=== PATIENT | male | born 1975 ===

== ENCOUNTER 2020-10-01 14:01 | Inpatient (IN) | payer MEDICARE ==
--- NOTE | 2020-10-02 09:07 | History and Physical Report ---
GP History & Physical - History of Present Illness Date of admission: 10/01/20 Date of Examination: 10/02/20 History of Present Illness: HPI Patient is a 45-year-old -[place] male with past psychiatric history of schizophrenia who was admitted from an outside hospital after initial presentation to the ED by EMS with concerns of aggressive and angry behavior at home by the sister. This a.m. patient currently had mumbling, when asked how he feels patient reported refused all HIV. When asked if patient is single, patient reported and waiting to see all of my kids, says he has holes, he got no ice and no children. Patient then began thinking about the care and symptoms and states that he would like to get some zees. 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 When asked if patient does drugs, patient states he does clubs and my question are also the answer. Patient reported that he has a vision of a female psychiatrist asking his questions and he walked out of the interview PAST PSYCHIATRIC HISTORY: Diagnoses: Schizophrenia Suicide attempts or Self-harm behavior: n/a Prior psychiatric hospitalizations: n/a Substance Abuse history: n/a Previous psychiatric medications tried:n/a Outpatient treatment: n/a PAST MEDICAL HISTORY: n/a Family Psychiatric History: None reported or documented SOCIAL HISTORY Marital Status: single Living Arrangements: with family Employment Status: n/a Access to guns/weapons: n/a Education: n/a History of Abuse: n/a Legal History:n/a REVIEW OF SYSTEMS ROS cannot be reliably obtained from the patient due to is confusion MENTAL STATUS EXAMINATION General Appearance and Behavior: Age appropriate, good hygiene, not wearing appropriate clothes, good eye contact, cooperative polite with questioning. Cooperation: Participating/engaged Psychomotor Behavior: Psychomotor agitation Mood: Good Affect and affective range: euthymic, euphoric Thought Process:Circumstantial, Illogical, Thought Content: hallucinations. Flight of ideas, Illogical, Grandiose, Speech: pressured, loud volume at times Intellectual Functioning: Average Suicidal Ideation: Denies SI Homicidal Ideation: Denies HIl Impulse Control: Impaired Insight and Judgment: Limited insight and judgment Memory: Normal, Attention: Divided attention impaired Orientation: Alert, Diagnoses: Assessment and Plan - Psychiatric problem (1) Acute schizophrenia Current Visit: Yes Status: Acute F23 Treatment Plan Patient to be started on IM due to acute psychosis. [place] IM, bridged to oral haldol Depakote 250 TID Patient admitted for inpatient psychiatric evaluation, medication adjustment and close monitoring The patient's behavior, mood, sleep and appetite will be closely monitored. Patient enrolled in individual and group therapeutic sessions and encouraged to attend. Patient provided with a safe and structured environment. Patient's physical health needs will be addressed by the Hospitalist. Hospitalist Consulted Labs including CBC, CMP, Lipid profile and Hemoglobin A1C levels ordered for baseline reference Social Assessment will be completed and the Low Pressure Boiler Operator will work with patient and family to ensure a suitable and safe disposition Medication adjustment will be made as clinically indicated Usual Wellness Baptism/Preservation: - Start Trazodone 50 mg po QHS & 50 mg po QHS PRN between 10 PM & 2 AM for insomnia - Start Melatonin 5 mg po QHS to promote circadian rhythm - Start [place]-3 for brain health, reduce impulsivity, and as adjunctive treatment for mood disorder, continue upon discharge given overall benefits. - Start B1 prophylaxis with 200 mg po for 5 days The patient agreed on the treatment plan, understood the risk, benefit, alternative treatment, potential consequence of no treatment, and gave informed consent. Initial Certification Inpatient psych services: I certify that the inpatient psychiatric services are required for treatment that could reasonably be expected to improve the patient's condition. Estimated days: 7 Post hospital care: primary care provider, psychiatric provider Legal Status: Voluntary Patient Problems: Current Active Problems Acute schizophrenia (Acute) Reaction to Hospitalization: Accepting Medications and Allergies Allergies Allergy/AdvReac Type Severity Reaction Status Date / Time No Known Allergies Allergy Unverified 10/01/20 16:10 Home Medications Medication Instructions Recorded Confirmed Last Taken Type VALPROIC ACID Liq [DepaKENE Liq] 250 mg PO BID 10/02/20 10/02/20 Unknown History risperiDONE [RisperDAL] 4 mg PO QHS 10/02/20 10/02/20 Unknown History Results - Results Labs/Vitals: Laboratory Last Values POC Glucose 93 mg/dL (70-105) 10/01/20 20:51 Last Vital Signs Temp 98.2 F 10/01/20 22:00 Pulse 67 10/01/20 22:00 Resp 17 10/01/20 22:00 BP 99/64 10/02/20 07:57 Pulse Ox 96 10/01/20 22:00 Physical Examination - Constitutional Vitals: Vital Signs Temp Pulse Resp BP Pulse Ox 98.2 F 67 17 99/64 96 10/01/20 22:00 10/01/20 22:00 10/01/20 22:00 10/02/20 07:57 10/01/20 22:00 Temperature -Last 24 Hours Temperature 98.2 F Mental Status Exam - Vital signs Last Vital Signs Temp 98.2 F 10/01/20 22:00 Pulse 67 10/01/20 22:00 Resp 17 10/01/20 22:00 BP 99/64 10/02/20 07:57 Pulse Ox 96 10/01/20 22:00 Assessment and Plan - Psychiatric problem (1) Acute schizophrenia Current Visit: Yes Status: Acute Physician Certification - Certification Statement Physician Certification Statement: This is an acknowledgement statement that APOLONIA MASON HONEYCUTT JR. is a 45 year old M who requires inpatient psychiatric admission for treatment which could reasonably be expected to improve the patient's condition for Estimated period of time patient will need to remain in the hospital: [ ] Plan for post-hospital care: [ ]
[2020-10-02] MEDS ORDERED: WATER FOR INJ Sterile (PF) 10 ML ONE (09:26)
[2020-10-02] MEDS: ZIPRASIDONE MESYLATE 20 MG VIAL IM SCH ×2 (09:52→21:30)
[2020-10-02] MEDS: HALOPERIDOL 2 MG TAB PO SCH ×2 (09:54→21:30)
[2020-10-02] MEDS: OMEGA-3 FATTY ACIDS/FISH OIL 1 GRAM CAP PO SCH ×2 (09:54→21:29)
[2020-10-02] MEDS ORDERED: BENZTROPINE 2 MG/2 ML INJ IM ONE (10:00)
[2020-10-02] MEDS: VALPROIC ACID 250 MG CAP PO SCH ×2 (15:19→20:57)
--- NOTE | 2020-10-02 20:31 | Consultation ---
History of Present Illness - Reason for Consult Consult date: 10/02/20 Medical management Requesting physician: JERRY MONTGOMERY - History of Present Illness 45 YO Male with Schizophrenia admitted to geriatric psychiatry for psychiatric stabilization. Consult placed for medical management. Patient seen and evaluated in recreation room. Patient is cooperative with exam and interview. Patient denies fever, chills, chest pain, palpitations, shortness of breath, dif ficulty breathing, productive cough, recent ill contacts, or known exposure to COVID 19. No reported nursing events. Past History Past Medical History: other (see hpi) Past Surgical History: No surgical history, Other (reviewed) Social history: single Family history: no significant family history, other (reviewed) Medications and Allergies Allergies Allergy/AdvReac Type Severity Reaction Status Date / Time No Known Allergies Allergy Unverified 10/01/20 16:10 Home Medications Medication Instructions Recorded Confirmed Last Taken Type VALPROIC ACID Liq [DepaKENE Liq] 250 mg PO BID 10/02/20 10/02/20 Unknown History risperiDONE [RisperDAL] 4 mg PO QHS 10/02/20 10/02/20 Unknown History Active Meds: Active Medications Fish Oil ([place]-3 Fatty Acids/Fish Oil 1 Gram Cap) 2,000 mg PO BID [facility] Last Admin: 10/02/20 09:54 Dose: 2,000 mg Documented by: Haloperidol (Haloperidol 2 Mg Tab) 2 mg PO BID [facility] Last Admin: 10/02/20 09:54 Dose: 2 mg Documented by: Melatonin (Melatonin 5 Mg Tab) 5 mg PO QHS PRN PRN Reason: Sleep Trazodone HCl (Trazodone 50 Mg Tab) 50 mg PO QHS [facility] Valproic Acid (Valproic Acid 250 Mg Cap) 250 mg PO TID [facility] Last Admin: 10/02/20 15:19 Dose: 250 mg Documented by: Ziprasidone (Ziprasidone Mesylate 20 Mg Vial) 10 mg IM BID [facility] Stop: 10/03/20 10:01 Last Admin: 10/02/20 09:52 Dose: 10 mg Documented by: Review of Systems Constitutional: no weight loss, no weight gain, no fever, no chills Ears, nose, mouth and throat: no ear pain, no ear discharge, no tinnitis, no nose pain, no nasal congestion, no nasal discharge Cardiovascular: no chest pain, no orthopnea, no palpitations, no rapid/irregular heart beat, no edema, no lightheadedness Respiratory: no cough, no cough with sputum, no hemoptysis, no dyspnea on exertion Gastrointestinal: no abdominal pain, no nausea, no vomiting, no hematemesis, no coffee ground emesis Genitourinary Male: no hematuria, no flank pain, no discharge, no urinary hesitancy, no nocturia Rectal: no pain, no incontinence, no bleeding Musculoskeletal: no neck stiffness, no neck pain, no shooting arm pain, no arm numbness/tingling, no low back pain, no shooting leg pain, no leg numbness/tingling Integumentary: no rash, no sores, no wounds, no jaundice, no boils Neurological: no transient paralysis, no paralysis, no parathesias, no numbness, no tingling, no seizures, no syncope, no ataxia Psychiatric: no anxiety, no memory loss, no change in sleep habits, no sleep disturbances, no hypersomnia, no change in libido, no suicidal ideation, no disorientation Endocrine: no heat intolerance, no polyphagia, no polydipsia, no polyuria, no nocturia, no excessive sweating Hematologic/Lymphatic: no easy bruising, no easy bleeding, no lymphedema Allergic/Immunologic: no urticaria, no allergic rhinitis Exam - Constitutional Vitals: Temp Pulse Resp BP Pulse Ox 97.6 F 64 18 99/64 98 10/02/20 10:00 10/02/20 10:00 10/02/20 10:00 10/02/20 10:00 10/02/20 10:00 General appearance: Present: no acute distress, well-nourished - EENT Eyes: Present: PERRL ENT: hearing intact, clear oral mucosa - Neck Neck: Present: supple, normal ROM - Respiratory Respiratory effort: normal Respiratory: bilateral: CTA - Cardiovascular Heart Sounds: Present: S1 & S2. Absent: rub, click - Extremities Extremities: pulses symmetrical, No edema Peripheral Pulses: within normal limits - Abdominal General gastrointestinal: Present: soft, non-tender, non-distended, normal bowel sounds Male genitourinary: Present: normal - Integumentary Integumentary: Present: clear, warm, dry - Musculoskeletal Musculoskeletal: gait normal, strength equal bilaterally - Psychiatric Psychiatric: cooperative - Neurologic Neurologic: CNII-XII intact, moves all extremities Results - Labs CBC & Chem 7: 10/03/20 09:42 10/03/20 09:42 Assessment and Plan - Patient Problems (1) Acute schizophrenia Current Visit: Yes Status: Acute Plan to address problem: continue medical management
[2020-10-02] MEDS: traZODone 50 MG TAB PO SCH (21:29)
[2020-10-03] MEDS: HALOPERIDOL 2 MG TAB PO SCH (09:22)
[2020-10-03] MEDS: VALPROIC ACID 250 MG CAP PO SCH ×3 (09:22→21:17)
[2020-10-03] MEDS: ZIPRASIDONE MESYLATE 20 MG VIAL IM SCH (09:22)
[2020-10-03] MEDS: OMEGA-3 FATTY ACIDS/FISH OIL 1 GRAM CAP PO SCH (09:23)
[2020-10-03] MEDS ORDERED: LORazepam 2 MG/ML VIAL IM PRN (09:41)
--- NOTE | 2020-10-03 09:46 | Progress Note ---
Subjective Date of service: 10/03/20 Principal diagnosis: (1) Acute schizophrenia Subjective Comment: \Per Psych Nurse: Pt reported to have refused blood drawn this a.m. Patient is awake and resting quietly in her room. He denies needs at present, eat 100% breakfast. Pt. refused lab this AM, education given on benefit of lab drawn, pt strongly refused. Will continue to monitor patient. Psych Progress HPI In my interview with the patient this morning, the patient is not cooperative, walking away from me, says I am a white man and I am too young to talk to him. Patient began barking and yelling out loud. Security called and patient given medication to help sedate him for safety. Reason for continuing inpatient treatment:Acute psychosis Review of Symptoms: Constitutional: Negative for weight loss ENT: Negative for stridor Respiratory: Negative for cough or hemoptysis All other systems reviewed and are negative MENTAL STATUS EXAMINATION General Appearance and Behavior: Age appropriate, good hygiene, not wearing appropriate clothes, good eye contact, cooperative polite with questioning. Cooperation: Participating/engaged Psychomotor Behavior: Psychomotor agitation Mood: Good Affect and affective range: euthymic, euphoric Thought Process:Circumstantial, Illogical, Thought Content: hallucinations. Flight of ideas, Illogical, Grandiose, Speech: pressured, loud volume at times Intellectual Functioning: Average Suicidal Ideation: Denies SI Homicidal Ideation: Denies HIl Impulse Control: Impaired Insight and Judgment: Limited insight and judgment Memory: Normal, Attention: Divided attention impaired Orientation: Alert, oriented Assessment and Plan - Psychiatric problem (1) Acute schizophrenia Current Visit: Yes Status: Acute F23 Treatment Plan Patient to be started on IM due to acute psychosis. [place] IM discontinued, not responding to treatment, will start scheduled IMhaldol. Depakote 500 mg BID Seroquel 100mg BID Patient admitted for inpatient psychiatric evaluation, medication adjustment and close monitoring The patient's behavior, mood, sleep and appetite will be closely monitored. Patient enrolled in individual and group therapeutic sessions and encouraged to attend. Patient provided with a safe and structured environment. Patient's physical health needs will be addressed by the Hospitalist. Hospitalist Consulted Labs including CBC, CMP, Lipid profile and Hemoglobin A1C levels ordered for baseline reference Social Assessment will be completed and the Conciliation Court Judge will work with patient and family to ensure a suitable and safe disposition Medication adjustment will be made as clinically indicated Usual Wellness Voodoo/Preservation: - Start Trazodone 50 mg po QHS & 50 mg po QHS PRN between 10 PM & 2 AM for insomnia - Start Melatonin 5 mg po QHS to promote circadian rhythm - Start [place]-3 for brain health, reduce impulsivity, and as adjunctive treatment for mood disorder, continue upon discharge given overall benefits. - Start B1 prophylaxis with 200 mg po for 5 days The patient agreed on the treatment plan, understood the risk, benefit, alternative treatment, potential consequence of no treatment, and gave informed consent. Initial Certification Inpatient psych services: I certify that the inpatient psychiatric services are required for treatment that could reasonably be expected to improve the patient's condition. Estimated days: 5 Post hospital care: primary care provider, psychiatric provider Assessment and Plan - Patient Problems (1) Acute schizophrenia Current Visit: Yes Status: Acute Medications and Allergies Allergies Allergy/AdvReac Type Severity Reaction Status Date / Time No Known Allergies Allergy Unverified 10/01/20 16:10 Home Medications Medication Instructions Recorded Confirmed Last Taken Type VALPROIC ACID Liq [DepaKENE Liq] 250 mg PO BID 10/02/20 10/02/20 Unknown History risperiDONE [RisperDAL] 4 mg PO QHS 10/02/20 10/02/20 Unknown History Active Meds: Active Medications Fish Oil ([place]-3 Fatty Acids/Fish Oil 1 Gram Cap) 2,000 mg PO BID [facility] Last Admin: 10/03/20 09:23 Dose: 2,000 mg Documented by: Haloperidol Lactate (Haloperidol Lactate 5 Mg/1 Ml Inj) 5 mg IM BID [facility] Stop: 10/04/20 10:01 Lorazepam (Lorazepam 2 Mg/Ml Vial) 2 mg IM Q4H PRN PRN Reason: Agitation Melatonin (Melatonin 5 Mg Tab) 5 mg PO QHS PRN PRN Reason: Sleep Risperidone (Risperidone 0.25 Mg Tab) 1 mg PO BID [facility] Trazodone HCl (Trazodone 50 Mg Tab) 50 mg PO QHS [facility] Last Admin: 10/02/20 21:29 Dose: 50 mg Documented by: Valproic Acid (Valproic Acid 250 Mg Cap) 500 mg PO BID [facility] Ziprasidone (Ziprasidone Mesylate 20 Mg Vial) 10 mg IM BID [facility] Stop: 10/03/20 10:01 Last Admin: 10/03/20 09:22 Dose: 10 mg Documented by: Results - Results Labs/Vitals: Laboratory Last Values POC Glucose 93 mg/dL (70-105) 10/01/20 20:51 Last Vital Signs Temp 97.5 F L 10/02/20 22:00 Pulse 63 10/02/20 22:00 Resp 16 10/02/20 22:00 BP 114/64 10/02/20 22:00 Pulse Ox 96 10/02/20 22:00
[2020-10-03] MEDS ORDERED: QUEtiapine 100 MG TAB PO SCH (10:00)
[2020-10-03] MEDS ORDERED: risperiDONE 1 MG TAB PO SCH (10:00)
[2020-10-03 10:08] LABS: Hematocrit 39.5 % (35.5-45.6); Hemoglobin 13.2 gm/dl (11.8-15.2); Mean Corpuscular HGB Conc 33 % (32-34); Mean Corpuscular Volume 92 fl (84-94); Platelet Count 166 K/mm3 (140-440); Red Cell Distribution Width 12.5 % (13.2-15.2)
[2020-10-03] MEDS: HALOPERIDOL LACTATE 5 MG/1 ML INJ IM SCH ×2 (10:12→21:17)
[2020-10-03 10:26] LABS: Alanine Aminotransferase 19 units/L (7-56); Albumin 4.3 g/dL (3.9-5); BUN/Creatinine Ratio 11; Blood Urea Nitrogen 11 mg/dL (9-20); Calcium 9.2 mg/dL (8.4-10.2); Chol/HDL Ratio 2.59 %; HDL Cholesterol 49 mg/dL (40-59); Hemolysis Index 9; LDL Cholesterol,Direct 71 mg/dL (50-130)
[2020-10-03 12:26] LABS: Total Cells Counted 100
[2020-10-03 12:27] LABS: Platelet Estimate Consistent w Auto; RBC Morphology Normal
[2020-10-03] MEDS: QUEtiapine 100 MG TAB PO SCH (21:17)
[2020-10-03] MEDS: traZODone 50 MG TAB PO SCH (21:17)
[2020-10-03] MEDS ORDERED: VALPROIC ACID 250 MG/5 ML ORAL LIQD PO SCH (22:00)
--- NOTE | 2020-10-04 07:52 | Progress Note ---
Subjective Date of service: 10/04/20 Principal diagnosis: (1) Acute schizophrenia Subjective Comment: Per Psych Nurse: Patient went to sleep this morning after receiving prn IM medication. He refused po meds that were added this morning stating we were trying to kill him by giving him too much medication. When he awoke he was calmer but is starting to pace the floors again. His appetite is fair. Will continue to monitor patient for safety. Psych Progress HPI Patient is in room today refuses to come out, states he is sick, kept mumbling words and refusal to participate in the interview this AM Reason for continuing inpatient treatment: Acute psychosis Review of Symptoms: Constitutional: Negative for weight loss ENT: Negative for stridor Respiratory: Negative for cough or hemoptysis All other systems reviewed and are negative MENTAL STATUS EXAMINATION General Appearance and Behavior: Age appropriate, good hygiene, not wearing appropriate clothes, good eye contact, cooperative polite with questioning. Cooperation: Participating/engaged Psychomotor Behavior: Psychomotor agitation Mood: Good Affect and affective range: euthymic, euphoric Thought Process:Circumstantial, Illogical, Thought Content: Flight of ideas, Illogical, Grandiose, Speech: pressured, loud volume at times Intellectual Functioning: Average Suicidal Ideation: Denies SI Homicidal Ideation: Denies HI Impulse Control: Impaired Insight and Judgment: Limited insight and judgment Memory: Normal Attention: Divided attention impaired Orientation: Alert, oriented Assessment and Plan - Psychiatric problem (1) Acute schizophrenia Current Visit: Yes Status: Acute F23 Treatment Plan Continue IM medication till this AM. IM haldol. Depakote 500 mg BID. Seroquel 100mg BID. Patient admitted for inpatient psychiatric evaluation, medication adjustment and close monitoring The patient's behavior, mood, sleep and appetite will be closely monitored. Patient enrolled in individual and group therapeutic sessions and encouraged to attend. Patient provided with a safe and structured environment. Patient's physical health needs will be addressed by the Hospitalist. Hospitalist Consulted Labs including CBC, CMP, Lipid profile and Hemoglobin A1C levels ordered for baseline reference Social Assessment will be completed and the Marble Cutter will work with patient and family to ensure a suitable and safe disposition Medication adjustment will be made as clinically indicated Usual Wellness Restorationism/Preservation: - Start Trazodone 50 mg po QHS & 50 mg po QHS PRN between 10 PM & 2 AM for insomnia - Start Melatonin 5 mg po QHS to promote circadian rhythm - Start [place]-3 for brain health, reduce impulsivity, and as adjunctive treatment for mood disorder, continue upon discharge given overall benefits. - Start B1 prophylaxis with 200 mg po for 5 days The patient agreed on the treatment plan, understood the risk, benefit, alternative treatment, potential consequence of no treatment, and gave informed consent. Initial Certification Inpatient psych services: I certify that the inpatient psychiatric services are required for treatment that could reasonably be expected to improve the patient's condition. Estimated days: 5 Post hospital care: primary care provider, psychiatric provider Assessment and Plan - Patient Problems (1) Acute schizophrenia Current Visit: Yes Status: Acute Medications and Allergies Allergies Allergy/AdvReac Type Severity Reaction Status Date / Time No Known Allergies Allergy Unverified 10/01/20 16:10 Home Medications Medication Instructions Recorded Confirmed Last Taken Type VALPROIC ACID Liq [DepaKENE Liq] 250 mg PO BID 10/02/20 10/02/20 Unknown History risperiDONE [RisperDAL] 4 mg PO QHS 10/02/20 10/02/20 Unknown History Active Meds: Active Medications Haloperidol Lactate (Haloperidol Lactate 5 Mg/1 Ml Inj) 5 mg IM BID [facility] Stop: 10/04/20 10:01 Last Admin: 10/03/20 21:17 Dose: 5 mg Documented by: Lorazepam (Lorazepam 2 Mg/Ml Vial) 2 mg IM Q4H PRN PRN Reason: Agitation Last Admin: 10/03/20 10:12 Dose: 2 mg Documented by: Melatonin (Melatonin 5 Mg Tab) 5 mg PO QHS PRN PRN Reason: Sleep Quetiapine Fumarate (Quetiapine 100 Mg Tab) 200 mg PO QHS [facility] Last Admin: 10/03/20 21:17 Dose: 200 mg Documented by: Quetiapine Fumarate (Quetiapine 100 Mg Tab) 100 mg PO QAM [facility] Last Admin: 10/03/20 13:19 Dose: Not Given Documented by: Trazodone HCl (Trazodone 50 Mg Tab) 50 mg PO QHS [facility] Last Admin: 10/03/20 21:17 Dose: 50 mg Documented by: Valproic Acid (Valproic Acid 250 Mg Cap) 500 mg PO BID [facility] Last Admin: 10/03/20 21:17 Dose: 500 mg Documented by: Results - Results Labs/Vitals: Laboratory Last Values WBC 5.5 K/mm3 (4.5-11.0) 10/03/20 09:42 RBC 4.30 M/mm3 (3.65-5.03) 10/03/20 09:42 Hgb 13.2 gm/dl (11.8-15.2) 10/03/20 09:42 Hct 39.5 % (35.5-45.6) 10/03/20 09:42 MCV 92 fl (84-94) 10/03/20 09:42 MCH 31 pg (28-32) 10/03/20 09:42 MCHC 33 % (32-34) 10/03/20 09:42 RDW 12.5 % (13.2-15.2) L 10/03/20 09:42 Plt Count 166 K/mm3 (140-440) 10/03/20 09:42 Lymph % (Auto) Road Oiler 10/03/20 09:42 Add Manual Diff Complete 10/03/20 09:42 Total Counted 100 10/03/20 09:42 Seg Neutrophils % Road Oiler 10/03/20 09:42 Seg Neuts % (Manual) 32.0 % (40.0-70.0) L 10/03/20 09:42 Lymphocytes % (Manual) 49.0 % (13.4-35.0) H 10/03/20 09:42 Reactive Lymphs % (Man) 5.0 % 10/03/20 09:42 Monocytes % (Manual) 12.0 % (0.0-7.3) H 10/03/20 09:42 Eosinophils % (Manual) 2.0 % (0.0-4.3) 10/03/20 09:42 Nucleated RBC % Not Reportable 10/03/20 09:42 Seg Neutrophils # Man 1.8 K/mm3 (1.8-7.7) 10/03/20 09:42 Band Neutrophils # 0.0 K/mm3 10/03/20 09:42 Lymphocytes # (Manual) 2.7 K/mm3 (1.2-5.4) 10/03/20 09:42 Abs React Lymphs (Man) 0.3 K/mm3 10/03/20 09:42 Monocytes # (Manual) 0.7 K/mm3 (0.0-0.8) 10/03/20 09:42 Eosinophils # (Manual) 0.1 K/mm3 (0.0-0.4) 10/03/20 09:42 Basophils # (Manual) 0.0 K/mm3 (0.0-0.1) 10/03/20 09:42 Metamyelocytes # 0.0 K/mm3 10/03/20 09:42 Myelocytes # 0.0 K/mm3 10/03/20 09:42 Promyelocytes # 0.0 K/mm3 10/03/20 09:42 Blast Cells # 0.0 K/mm3 10/03/20 09:42 WBC Morphology Not Reportable 10/03/20 09:42 Hypersegmented Neuts Not Reportable 10/03/20 09:42 Hyposegmented Neuts Not Reportable 10/03/20 09:42 Hypogranular Neuts Not Reportable 10/03/20 09:42 Smudge Cells Not Reportable 10/03/20 09:42 Toxic Granulation Not Reportable 10/03/20 09:42 Toxic Vacuolation Not Reportable 10/03/20 09:42 Dohle Bodies Not Reportable 10/03/20 09:42 Pelger-Huet Anomaly Not Reportable 10/03/20 09:42 Soren Rods Not Reportable 10/03/20 09:42 Platelet Estimate Consistent w auto 10/03/20 09:42 Clumped Platelets Not Reportable 10/03/20 09:42 Plt Clumps, EDTA Not Reportable 10/03/20 09:42 Large Platelets Not Reportable 10/03/20 09:42 Giant Platelets Not Reportable 10/03/20 09:42 Platelet Satelliting Not Reportable 10/03/20 09:42 Plt Morphology Comment Not Reportable 10/03/20 09:42 RBC Morphology Normal 10/03/20 09:42 Dimorphic RBCs Not Reportable 10/03/20 09:42 Polychromasia Not Reportable 10/03/20 09:42 Hypochromasia Not Reportable 10/03/20 09:42 Poikilocytosis Not Reportable 10/03/20 09:42 Anisocytosis Not Reportable 10/03/20 09:42 Microcytosis Not Reportable 10/03/20 09:42 Macrocytosis Not Reportable 10/03/20 09:42 Spherocytes Not Reportable 10/03/20 09:42 Pappenheimer Bodies Not Reportable 10/03/20 09:42 Sickle Cells Not Reportable 10/03/20 09:42 Target Cells Not Reportable 10/03/20 09:42 Tear Drop Cells Not Reportable 10/03/20 09:42 Ovalocytes Not Reportable 10/03/20 09:42 Helmet Cells Not Reportable 10/03/20 09:42 English-[place] Bodies Not Reportable 10/03/20 09:42 [place] Rings Not Reportable 10/03/20 09:42 [place] Cells Not Reportable 10/03/20 09:42 Bite Cells Not Reportable 10/03/20 09:42 Crenated Cell Not Reportable 10/03/20 09:42 Elliptocytes Not Reportable 10/03/20 09:42 Acanthocytes (Spur) Not Reportable 10/03/20 09:42 Rouleaux Not Reportable 10/03/20 09:42 Hemoglobin C Crystals Not Reportable 10/03/20 09:42 Schistocytes Not Reportable 10/03/20 09:42 Malaria parasites Not Reportable 10/03/20 09:42 Harish Bodies Not Reportable 10/03/20 09:42 Hem Pathologist Commnt No 10/03/20 09:42 Sodium 141 mmol/L (137-145) 10/03/20 09:42 Potassium 4.3 mmol/L (3.6-5.0) 10/03/20 09:42 Chloride 104.9 mmol/L (98-107) 10/03/20 09:42 Carbon Dioxide 25 mmol/L (22-30) 10/03/20 09:42 Anion Gap 15 mmol/L 10/03/20 09:42 BUN 11 mg/dL (9-20) 10/03/20 09:42 Creatinine 1.0 mg/dL (0.8-1.3) 10/03/20 09:42 Estimated GFR > 60 ml/min 10/03/20 09:42 BUN/Creatinine Ratio 11 % 10/03/20 09:42 Glucose 109 mg/dL (75-100) H 10/03/20 09:42 POC Glucose 93 mg/dL (70-105) 10/01/20 20:51 Hemoglobin A1c 4.5 % (4-6) 10/03/20 09:42 Calcium 9.2 mg/dL (8.4-10.2) 10/03/20 09:42 Total Bilirubin 1.00 mg/dL (0.1-1.2) 10/03/20 09:42 AST 22 units/L (5-40) 10/03/20 09:42 ALT 19 units/L (7-56) 10/03/20 09:42 Alkaline Phosphatase 47 units/L (35-129) 10/03/20 09:42 Total Protein 6.7 g/dL (6.3-8.2) 10/03/20 09:42 Albumin 4.3 g/dL (3.9-5) 10/03/20 09:42 Albumin/Globulin Ratio 1.8 % 10/03/20 09:42 Triglycerides 133 mg/dL (2-149) 10/03/20 09:42 Cholesterol 127 mg/dL (50-199) 10/03/20 09:42 LDL Cholesterol Direct 71 mg/dL (50-130) 10/03/20 09:42 HDL Cholesterol 49 mg/dL (40-59) 10/03/20 09:42 Cholesterol/HDL Ratio 2.59 % 10/03/20 09:42 TSH 1.710 mlU/mL (0.270-4.200) 10/03/20 09:42 Last Vital Signs Temp 98.3 F 10/03/20 20:10 Pulse 67 10/03/20 20:10 Resp 16 10/03/20 20:10 BP 116/67 10/03/20 20:10 Pulse Ox 95 10/03/20 20:10
[2020-10-04] MEDS: QUEtiapine 100 MG TAB PO SCH ×2 (10:58→21:40)
[2020-10-04] MEDS: HALOPERIDOL LACTATE 5 MG/1 ML INJ IM SCH (10:58)
[2020-10-04] MEDS: VALPROIC ACID 250 MG CAP PO SCH ×2 (10:58→21:41)
[2020-10-04] MEDS: traZODone 50 MG TAB PO SCH (21:40)
--- NOTE | 2020-10-05 07:47 | Progress Note ---
Subjective Date of service: 10/05/20 Principal diagnosis: (1) Acute schizophrenia Subjective Comment: Per Psych Nurse: pt spent the evening in his room, alert and orientedx3, calm and cooperative, able to make needs known, reported doing well, denies si/hi, when pt was being assessed for hallucination, he laughed and did not answer, pt is medication compliant, consumed 100% of bedtime snack, pt is up at this time pacing the hallway responding to internal stimuli , requested for water which was offered, no distress noted, will continue to monitor for safety. Psych Progress HPI Patient seen this AM, reports eating and sleeping okay, patient still exhibiting response to internal stimmulus but probably baseline, he says he has not spoken to sister yet. Patient reports hearing foot steps at night that bothered. Patient now requesting for the fish oil medication, says he likes it. Patient denies SI, HI or VH. Reason for continuing inpatient treatment: Patient improving, more cooperative and response than previous, requires no security presence for evaluation and less resistant to care. Patient has chronic schizophrenia, baseline care goal is cooperativeness and compliance to medication without agitation. WIll continue to observe for mood stability. Review of Symptoms: Constitutional: Negative for weight loss ENT: Negative for stridor Respiratory: Negative for cough or hemoptysis All other systems reviewed and are negative MENTAL STATUS EXAMINATION General Appearance and Behavior: Age appropriate, good hygiene, not wearing appropriate clothes, good eye contact, cooperative polite with questioning. Cooperation: Participating/engaged Psychomotor Behavior: Psychomotor normal Mood: Good Affect and affective range: congruent with mood Thought Process:Circumstantial, Thought Content: flight off ideas Speech: normal rate and volume Intellectual Functioning: Average Suicidal Ideation: Denies SI Homicidal Ideation: Denies HI Impulse Control: Impaired Insight and Judgment: Limited insight and judgment Memory: Normal Attention: Divided attention impaired Orientation: Alert, oriented Assessment and Plan - Psychiatric problem (1) Acute schizophrenia Current Visit: Yes Status: Acute F23 Treatment Plan Continue IM medication till this AM. IM haldol. Depakote 500 mg BID. Seroquel 100mg BID. Patient admitted for inpatient psychiatric evaluation, medication adjustment and close monitoring The patient's behavior, mood, sleep and appetite will be closely monitored. Patient enrolled in individual and group therapeutic sessions and encouraged to attend. Patient provided with a safe and structured environment. Patient's physical health needs will be addressed by the Hospitalist. Hospitalist Consulted Labs including CBC, CMP, Lipid profile and Hemoglobin A1C levels ordered for baseline reference Social Assessment will be completed and the Women'S Lacrosse Coach will work with patient and family to ensure a suitable and safe disposition Medication adjustment will be made as clinically indicated Usual Wellness Yarsani/Preservation: - Start Trazodone 50 mg po QHS & 50 mg po QHS PRN between 10 PM & 2 AM for insomnia - Start Melatonin 5 mg po QHS to promote circadian rhythm - Start [place]-3 for brain health, reduce impulsivity, and as adjunctive treatment for mood disorder, continue upon discharge given overall benefits. - Start B1 prophylaxis with 200 mg po for 5 days The patient agreed on the treatment plan, understood the risk, benefit, alternative treatment, potential consequence of no treatment, and gave informed consent. Initial Certification Inpatient psych services: I certify that the inpatient psychiatric services are required for treatment that could reasonably be expected to improve the patient's condition. Estimated days: 4 Post hospital care: primary care provider, psychiatric provider Assessment and Plan - Patient Problems (1) Acute schizophrenia Current Visit: Yes Status: Acute Medications and Allergies Allergies Allergy/AdvReac Type Severity Reaction Status Date / Time No Known Allergies Allergy Unverified 10/01/20 16:10 Home Medications Medication Instructions Recorded Confirmed Last Taken Type VALPROIC ACID Liq [DepaKENE Liq] 250 mg PO BID 10/02/20 10/02/20 Unknown History risperiDONE [RisperDAL] 4 mg PO QHS 10/02/20 10/02/20 Unknown History Active Meds: Active Medications Lorazepam (Lorazepam 2 Mg/Ml Vial) 2 mg IM Q4H PRN PRN Reason: Agitation Last Admin: 10/03/20 10:12 Dose: 2 mg Documented by: Melatonin (Melatonin 5 Mg Tab) 5 mg PO QHS PRN PRN Reason: Sleep Quetiapine Fumarate (Quetiapine 100 Mg Tab) 200 mg PO QHS [facility] Last Admin: 10/04/20 21:40 Dose: 200 mg Documented by: Quetiapine Fumarate (Qu[facility]apine 100 Mg Tab) [facility] [place] Last Admin: 10/04/20 10:58 Dose: 200 mg Documented by: Trazodone HCl (Trazodone 50 Mg Tab) 50 mg PO QHS [facility] Last Admin: 10/04/20 21:40 Dose: 50 mg Documented by: Valproic Acid (Valproic Acid 250 Mg Cap) 500 mg PO BID [facility] Last Admin: 10/04/20 21:41 Dose: 500 mg Documented by: Results - Results Labs/Vitals: Laboratory Last Values WBC 5.5 K/mm3 (4.5-11.0) 10/03/20 09:42 RBC 4.30 M/mm3 (3.65-5.03) 10/03/20 09:42 Hgb 13.2 gm/dl (11.8-15.2) 10/03/20 09:42 Hct 39.5 % (35.5-45.6) 10/03/20 09:42 MCV 92 fl (84-94) 10/03/20 09:42 MCH 31 pg (28-32) 10/03/20 09:42 MCHC 33 % (32-34) 10/03/20 09:42 RDW 12.5 % (13.2-15.2) L 10/03/20 09:42 Plt Count 166 K/mm3 (140-440) 10/03/20 09:42 Lymph % (Auto) Sql Database Developer 10/03/20 09:42 Add Manual Diff Complete 10/03/20 09:42 Total Counted 100 10/03/20 09:42 Seg Neutrophils % Sql Database Developer 10/03/20 09:42 Seg Neuts % (Manual) 32.0 % (40.0-70.0) L 10/03/20 09:42 Lymphocytes % (Manual) 49.0 % (13.4-35.0) H 10/03/20 09:42 Reactive Lymphs % (Man) 5.0 % 10/03/20 09:42 Monocytes % (Manual) 12.0 % (0.0-7.3) H 10/03/20 09:42 Eosinophils % (Manual) 2.0 % (0.0-4.3) 10/03/20 09:42 Nucleated RBC % Not Reportable 10/03/20 09:42 Seg Neutrophils # Man 1.8 K/mm3 (1.8-7.7) 10/03/20 09:42 Band Neutrophils # 0.0 K/mm3 10/03/20 09:42 Lymphocytes # (Manual) 2.7 K/mm3 (1.2-5.4) 10/03/20 09:42 Abs React Lymphs (Man) 0.3 K/mm3 10/03/20 09:42 Monocytes # (Manual) 0.7 K/mm3 (0.0-0.8) 10/03/20 09:42 Eosinophils # (Manual) 0.1 K/mm3 (0.0-0.4) 10/03/20 09:42 Basophils # (Manual) 0.0 K/mm3 (0.0-0.1) 10/03/20 09:42 Metamyelocytes # 0.0 K/mm3 10/03/20 09:42 Myelocytes # 0.0 K/mm3 10/03/20 09:42 Promyelocytes # 0.0 K/mm3 10/03/20 09:42 Blast Cells # 0.0 K/mm3 10/03/20 09:42 WBC Morphology Not Reportable 10/03/20 09:42 Hypersegmented Neuts Not Reportable 10/03/20 09:42 Hyposegmented Neuts Not Reportable 10/03/20 09:42 Hypogranular Neuts Not Reportable 10/03/20 09:42 Smudge Cells Not Reportable 10/03/20 09:42 Toxic Granulation Not Reportable 10/03/20 09:42 Toxic Vacuolation Not Reportable 10/03/20 09:42 Dohle Bodies Not Reportable 10/03/20 09:42 Pelger-Huet Anomaly Not Reportable 10/03/20 09:42 Soren Rods Not Reportable 10/03/20 09:42 Platelet Estimate Consistent w auto 10/03/20 09:42 Clumped Platelets Not Reportable 10/03/20 09:42 Plt Clumps, EDTA Not Reportable 10/03/20 09:42 Large Platelets Not Reportable 10/03/20 09:42 Giant Platelets Not Reportable 10/03/20 09:42 Platelet Satelliting Not Reportable 10/03/20 09:42 Plt Morphology Comment Not Reportable 10/03/20 09:42 RBC Morphology Normal 10/03/20 09:42 Dimorphic RBCs Not Reportable 10/03/20 09:42 Polychromasia Not Reportable 10/03/20 09:42 Hypochromasia Not Reportable 10/03/20 09:42 Poikilocytosis Not Reportable 10/03/20 09:42 Anisocytosis Not Reportable 10/03/20 09:42 Microcytosis Not Reportable 10/03/20 09:42 Macrocytosis Not Reportable 10/03/20 09:42 Spherocytes Not Reportable 10/03/20 09:42 Pappenheimer Bodies Not Reportable 10/03/20 09:42 Sickle Cells Not Reportable 10/03/20 09:42 Target Cells Not Reportable 10/03/20 09:42 Tear Drop Cells Not Reportable 10/03/20 09:42 Ovalocytes Not Reportable 10/03/20 09:42 Helmet Cells Not Reportable 10/03/20 09:42 [place] Bodies Not Reportable 10/03/20 09:42 [place] Rings Not Reportable 10/03/20 09:42 [place] Cells Not Reportable 10/03/20 09:42 Bite Cells Not Reportable 10/03/20 09:42 Crenated Cell Not Reportable 10/03/20 09:42 Elliptocytes Not Reportable 10/03/20 09:42 Acanthocytes (Spur) Not Reportable 10/03/20 09:42 Rouleaux Not Reportable 10/03/20 09:42 Hemoglobin C Crystals Not Reportable 10/03/20 09:42 Schistocytes Not Reportable 10/03/20 09:42 Malaria parasites Not Reportable 10/03/20 09:42 Harish Bodies Not Reportable 10/03/20 09:42 Hem Pathologist Commnt No 10/03/20 09:42 Sodium 141 mmol/L (137-145) 10/03/20 09:42 Potassium 4.3 mmol/L (3.6-5.0) 10/03/20 09:42 Chloride 104.9 mmol/L (98-107) 10/03/20 09:42 Carbon Dioxide 25 mmol/L (22-30) 10/03/20 09:42 Anion Gap 15 mmol/L 10/03/20 09:42 BUN 11 mg/dL (9-20) 10/03/20 09:42 Creatinine 1.0 mg/dL (0.8-1.3) 10/03/20 09:42 Estimated GFR > 60 ml/min 10/03/20 09:42 BUN/Creatinine Ratio 11 % 10/03/20 09:42 Glucose 109 mg/dL (75-100) H 10/03/20 09:42 POC Glucose 93 mg/dL (70-105) 10/01/20 20:51 Hemoglobin A1c 4.5 % (4-6) 10/03/20 09:42 Calcium 9.2 mg/dL (8.4-10.2) 10/03/20 09:42 Total Bilirubin 1.00 mg/dL (0.1-1.2) 10/03/20 09:42 AST 22 units/L (5-40) 10/03/20 09:42 ALT 19 units/L (7-56) 10/03/20 09:42 Alkaline Phosphatase 47 units/L (35-129) 10/03/20 09:42 Total Protein 6.7 g/dL (6.3-8.2) 10/03/20 09:42 Albumin 4.3 g/dL (3.9-5) 10/03/20 09:42 Albumin/Globulin Ratio 1.8 % 10/03/20 09:42 Triglycerides 133 mg/dL (2-149) 10/03/20 09:42 Cholesterol 127 mg/dL (50-199) 10/03/20 09:42 LDL Cholesterol Direct 71 mg/dL (50-130) 10/03/20 09:42 HDL Cholesterol 49 mg/dL (40-59) 10/03/20 09:42 Cholesterol/HDL Ratio 2.59 % 10/03/20 09:42 TSH 1.710 mlU/mL (0.270-4.200) 10/03/20 09:42 Last Vital Signs Temp 98.4 F 10/04/20 22:00 Pulse 70 10/04/20 22:00 Resp 16 10/04/20 22:00 BP 110/53 10/04/20 22:00 Pulse Ox 95 10/04/20 22:00
[2020-10-05] MEDS: VALPROIC ACID 250 MG CAP PO SCH ×2 (09:39→21:03)
[2020-10-05] MEDS: QUEtiapine 100 MG TAB PO SCH ×2 (09:39→21:04)
[2020-10-05] MEDS: OMEGA-3 FATTY ACIDS/FISH OIL 1 GRAM CAP PO SCH ×2 (09:40→21:03)
[2020-10-05] MEDS: traZODone 50 MG TAB PO SCH (21:03)
--- NOTE | 2020-10-05 21:27 | Progress Note ---
Assessment and Plan - Patient Problems (1) Acute schizophrenia Current Visit: Yes Status: Acute Plan to address problem: continue medical management History Interval history: 45 YO Male with Schizophrenia admitted to geriatric psychiatry for psychiatric stabilization. Patient is cooperative with exam and interview. Patient denies fever, chills, chest pain. NO reported nursing events. Hospitalist Physical - Constitutional Vitals: Temp Pulse Resp BP Pulse Ox 97.9 F 80 16 122/64 97 10/05/20 19:56 10/05/20 19:56 10/05/20 19:56 10/05/20 19:56 10/05/20 19:56 General appearance: Present: no acute distress, well-nourished - EENT Eyes: Present: PERRL, EOM intact ENT: hearing intact - Neck Neck: Present: supple - Respiratory Respiratory: bilateral: CTA - Cardiovascular Rhythm: regular Heart Sounds: Present: S1 & S2 - Extremities Extremities: no ischemia - Abdominal General gastrointestinal: soft, non-tender, non-distended - Integumentary Integumentary: Present: clear, warm, dry - Psychiatric Psychiatric: cooperative - Neurologic Neurologic: CNII-XII intact Results - Labs CBC & Chem 7: 10/03/20 09:42 10/03/20 09:42 Labs: Laboratory Last Values WBC 5.5 K/mm3 (4.5-11.0) 10/03/20 09:42 RBC 4.30 M/mm3 (3.65-5.03) 10/03/20 09:42 Hgb 13.2 gm/dl (11.8-15.2) 10/03/20 09:42 Hct 39.5 % (35.5-45.6) 10/03/20 09:42 MCV 92 fl (84-94) 10/03/20 09:42 MCH 31 pg (28-32) 10/03/20 09:42 MCHC 33 % (32-34) 10/03/20 09:42 RDW 12.5 % (13.2-15.2) L 10/03/20 09:42 Plt Count 166 K/mm3 (140-440) 10/03/20 09:42 Lymph % (Auto) Automobile Detailer 10/03/20 09:42 Add Manual Diff Complete 10/03/20 09:42 Total Counted 100 10/03/20 09:42 Seg Neutrophils % Automobile Detailer 10/03/20 09:42 Seg Neuts % (Manual) 32.0 % (40.0-70.0) L 10/03/20 09:42 Lymphocytes % (Manual) 49.0 % (13.4-35.0) H 10/03/20 09:42 Reactive Lymphs % (Man) 5.0 % 10/03/20 09:42 Monocytes % (Manual) 12.0 % (0.0-7.3) H 10/03/20 09:42 Eosinophils % (Manual) 2.0 % (0.0-4.3) 10/03/20 09:42 Nucleated RBC % Not Reportable 10/03/20 09:42 Seg Neutrophils # Man 1.8 K/mm3 (1.8-7.7) 10/03/20 09:42 Band Neutrophils # 0.0 K/mm3 10/03/20 09:42 Lymphocytes # (Manual) 2.7 K/mm3 (1.2-5.4) 10/03/20 09:42 Abs React Lymphs (Man) 0.3 K/mm3 10/03/20 09:42 Monocytes # (Manual) 0.7 K/mm3 (0.0-0.8) 10/03/20 09:42 Eosinophils # (Manual) 0.1 K/mm3 (0.0-0.4) 10/03/20 09:42 Basophils # (Manual) 0.0 K/mm3 (0.0-0.1) 10/03/20 09:42 Metamyelocytes # 0.0 K/mm3 10/03/20 09:42 Myelocytes # 0.0 K/mm3 10/03/20 09:42 Promyelocytes # 0.0 K/mm3 10/03/20 09:42 Blast Cells # 0.0 K/mm3 10/03/20 09:42 WBC Morphology Not Reportable 10/03/20 09:42 Hypersegmented Neuts Not Reportable 10/03/20 09:42 Hyposegmented Neuts Not Reportable 10/03/20 09:42 Hypogranular Neuts Not Reportable 10/03/20 09:42 Smudge Cells Not Reportable 10/03/20 09:42 Toxic Granulation Not Reportable 10/03/20 09:42 Toxic Vacuolation Not Reportable 10/03/20 09:42 Dohle Bodies Not Reportable 10/03/20 09:42 Pelger-Huet Anomaly Not Reportable 10/03/20 09:42 Soren Rods Not Reportable 10/03/20 09:42 Platelet Estimate Consistent w auto 10/03/20 09:42 Clumped Platelets Not Reportable 10/03/20 09:42 Plt Clumps, EDTA Not Reportable 10/03/20 09:42 Large Platelets Not Reportable 10/03/20 09:42 Giant Platelets Not Reportable 10/03/20 09:42 Platelet Satelliting Not Reportable 10/03/20 09:42 Plt Morphology Comment Not Reportable 10/03/20 09:42 RBC Morphology Normal 10/03/20 09:42 Dimorphic RBCs Not Reportable 10/03/20 09:42 Polychromasia Not Reportable 10/03/20 09:42 Hypochromasia Not Reportable 10/03/20 09:42 Poikilocytosis Not Reportable 10/03/20 09:42 Anisocytosis Not Reportable 10/03/20 09:42 Microcytosis Not Reportable 10/03/20 09:42 Macrocytosis Not Reportable 10/03/20 09:42 Spherocytes Not Reportable 10/03/20 09:42 Pappenheimer Bodies Not Reportable 10/03/20 09:42 Sickle Cells Not Reportable 10/03/20 09:42 Target Cells Not Reportable 10/03/20 09:42 Tear Drop Cells Not Reportable 10/03/20 09:42 Ovalocytes Not Reportable 10/03/20 09:42 Helmet Cells Not Reportable 10/03/20 09:42 [place] Bodies Not Reportable 10/03/20 09:42 [place] Rings Not Reportable 10/03/20 09:42 [place] Cells Not Reportable 10/03/20 09:42 Bite Cells Not Reportable 10/03/20 09:42 Crenated Cell Not Reportable 10/03/20 09:42 Elliptocytes Not Reportable 10/03/20 09:42 Acanthocytes (Spur) Not Reportable 10/03/20 09:42 Rouleaux Not Reportable 10/03/20 09:42 Hemoglobin C Crystals Not Reportable 10/03/20 09:42 Schistocytes Not Reportable 10/03/20 09:42 Malaria parasites Not Reportable 10/03/20 09:42 Harish Bodies Not Reportable 10/03/20 09:42 Hem Pathologist Commnt No 10/03/20 09:42 Sodium 141 mmol/L (137-145) 10/03/20 09:42 Potassium 4.3 mmol/L (3.6-5.0) 10/03/20 09:42 Chloride 104.9 mmol/L (98-107) 10/03/20 09:42 Carbon Dioxide 25 mmol/L (22-30) 10/03/20 09:42 Anion Gap 15 mmol/L 10/03/20 09:42 BUN 11 mg/dL (9-20) 10/03/20 09:42 Creatinine 1.0 mg/dL (0.8-1.3) 10/03/20 09:42 Estimated GFR > 60 ml/min 10/03/20 09:42 BUN/Creatinine Ratio 11 % 10/03/20 09:42 Glucose 109 mg/dL (75-100) H 10/03/20 09:42 POC Glucose 93 mg/dL (70-105) 10/01/20 20:51 Hemoglobin A1c 4.5 % (4-6) 10/03/20 09:42 Calcium 9.2 mg/dL (8.4-10.2) 10/03/20 09:42 Total Bilirubin 1.00 mg/dL (0.1-1.2) 10/03/20 09:42 AST 22 units/L (5-40) 10/03/20 09:42 ALT 19 units/L (7-56) 10/03/20 09:42 Alkaline Phosphatase 47 units/L (35-129) 10/03/20 09:42 Total Protein 6.7 g/dL (6.3-8.2) 10/03/20 09:42 Albumin 4.3 g/dL (3.9-5) 10/03/20 09:42 Albumin/Globulin Ratio 1.8 % 10/03/20 09:42 Triglycerides 133 mg/dL (2-149) 10/03/20 09:42 Cholesterol 127 mg/dL (50-199) 10/03/20 09:42 LDL Cholesterol Direct 71 mg/dL (50-130) 10/03/20 09:42 HDL Cholesterol 49 mg/dL (40-59) 10/03/20 09:42 Cholesterol/HDL Ratio 2.59 % 10/03/20 09:42 TSH 1.710 mlU/mL (0.270-4.200) 10/03/20 09:42 Thompson/IV: Voiding Method Toilet Active Medications - Current Medications Current Medications: Generic Name Dose Route Start Last Admin Trade Name Freq PRN Reason Stop Dose Admin Fish Oil 2,000 mg 10/05/20 10:00 10/05/20 21:03 [place]-3 Fatty Acids/Fish Oil 1 Gram Cap PO 2,000 mg BID ANA Administration Lorazepam 2 mg 10/03/20 09:41 10/03/20 10:12 Lorazepam 2 Mg/Ml Vial IM 2 mg Q4H PRN Administration Agitation Melatonin 5 mg 10/02/20 22:00 Melatonin 5 Mg Tab PO QHS PRN Sleep Quetiapine Fumarate 200 mg 10/03/20 22:00 10/05/20 21:04 Quetiapine 100 Mg Tab PO 200 mg QHS ANA Administration Quetiapine Fumarate 200 mg 10/04/20 10:00 10/05/20 09:39 Quetiapine 100 Mg Tab PO 200 mg QAM ANA Administration Trazodone HCl 50 mg 10/02/20 22:00 10/05/20 21:03 Trazodone 50 Mg Tab PO 50 mg QHS ANA Administration Valproic Acid 500 mg 10/03/20 10:00 10/05/20 21:03 Valproic Acid 250 Mg Cap PO 500 mg BID ANA Administration
--- NOTE | 2020-10-05 21:30 | Progress Note ---
Assessment and Plan - Patient Problems (1) Acute schizophrenia Current Visit: Yes Status: Acute Plan to address problem: continue medical management History Interval history: 45 YO Male with Schizophrenia admitted to geriatric psychiatry for psychiatric stabilization. Patient is cooperative with exam and interview. Patient denies fever, chills, chest pain. NO reported nursing events. Hospitalist Physical - Constitutional Vitals: Temp Pulse Resp BP Pulse Ox 97.9 F 80 16 122/64 97 10/05/20 19:56 10/05/20 19:56 10/05/20 19:56 10/05/20 19:56 10/05/20 19:56 General appearance: Present: no acute distress, well-nourished - EENT Eyes: Present: PERRL, EOM intact ENT: hearing intact - Neck Neck: Present: supple - Respiratory Respiratory effort: normal Respiratory: bilateral: CTA - Cardiovascular Rhythm: regular Heart Sounds: Present: S1 & S2 - Extremities Extremities: no ischemia Peripheral Pulses: within normal limits - Abdominal General gastrointestinal: soft, non-tender, non-distended - Integumentary Integumentary: Present: clear, dry - Psychiatric Psychiatric: appropriate mood/affect, cooperative - Neurologic Neurologic: CNII-XII intact Results - Labs CBC & Chem 7: 10/03/20 09:42 10/03/20 09:42 Labs: Laboratory Last Values WBC 5.5 K/mm3 (4.5-11.0) 10/03/20 09:42 RBC 4.30 M/mm3 (3.65-5.03) 10/03/20 09:42 Hgb 13.2 gm/dl (11.8-15.2) 10/03/20 09:42 Hct 39.5 % (35.5-45.6) 10/03/20 09:42 MCV 92 fl (84-94) 10/03/20 09:42 MCH 31 pg (28-32) 10/03/20 09:42 MCHC 33 % (32-34) 10/03/20 09:42 RDW 12.5 % (13.2-15.2) L 10/03/20 09:42 Plt Count 166 K/mm3 (140-440) 10/03/20 09:42 Lymph % (Auto) Gauge And Weigh Machine Operator 10/03/20 09:42 Add Manual Diff Complete 10/03/20 09:42 Total Counted 100 10/03/20 09:42 Seg Neutrophils % Gauge And Weigh Machine Operator 10/03/20 09:42 Seg Neuts % (Manual) 32.0 % (40.0-70.0) L 10/03/20 09:42 Lymphocytes % (Manual) 49.0 % (13.4-35.0) H 10/03/20 09:42 Reactive Lymphs % (Man) 5.0 % 10/03/20 09:42 Monocytes % (Manual) 12.0 % (0.0-7.3) H 10/03/20 09:42 Eosinophils % (Manual) 2.0 % (0.0-4.3) 10/03/20 09:42 Nucleated RBC % Not Reportable 10/03/20 09:42 Seg Neutrophils # Man 1.8 K/mm3 (1.8-7.7) 10/03/20 09:42 Band Neutrophils # 0.0 K/mm3 10/03/20 09:42 Lymphocytes # (Manual) 2.7 K/mm3 (1.2-5.4) 10/03/20 09:42 Abs React Lymphs (Man) 0.3 K/mm3 10/03/20 09:42 Monocytes # (Manual) 0.7 K/mm3 (0.0-0.8) 10/03/20 09:42 Eosinophils # (Manual) 0.1 K/mm3 (0.0-0.4) 10/03/20 09:42 Basophils # (Manual) 0.0 K/mm3 (0.0-0.1) 10/03/20 09:42 Metamyelocytes # 0.0 K/mm3 10/03/20 09:42 Myelocytes # 0.0 K/mm3 10/03/20 09:42 Promyelocytes # 0.0 K/mm3 10/03/20 09:42 Blast Cells # 0.0 K/mm3 10/03/20 09:42 WBC Morphology Not Reportable 10/03/20 09:42 Hypersegmented Neuts Not Reportable 10/03/20 09:42 Hyposegmented Neuts Not Reportable 10/03/20 09:42 Hypogranular Neuts Not Reportable 10/03/20 09:42 Smudge Cells Not Reportable 10/03/20 09:42 Toxic Granulation Not Reportable 10/03/20 09:42 Toxic Vacuolation Not Reportable 10/03/20 09:42 Dohle Bodies Not Reportable 10/03/20 09:42 Pelger-Huet Anomaly Not Reportable 10/03/20 09:42 Soren Rods Not Reportable 10/03/20 09:42 Platelet Estimate Consistent w auto 10/03/20 09:42 Clumped Platelets Not Reportable 10/03/20 09:42 Plt Clumps, EDTA Not Reportable 10/03/20 09:42 Large Platelets Not Reportable 10/03/20 09:42 Giant Platelets Not Reportable 10/03/20 09:42 Platelet Satelliting Not Reportable 10/03/20 09:42 Plt Morphology Comment Not Reportable 10/03/20 09:42 RBC Morphology Normal 10/03/20 09:42 Dimorphic RBCs Not Reportable 10/03/20 09:42 Polychromasia Not Reportable 10/03/20 09:42 Hypochromasia Not Reportable 10/03/20 09:42 Poikilocytosis Not Reportable 10/03/20 09:42 Anisocytosis Not Reportable 10/03/20 09:42 Microcytosis Not Reportable 10/03/20 09:42 Macrocytosis Not Reportable 10/03/20 09:42 Spherocytes Not Reportable 10/03/20 09:42 Pappenheimer Bodies Not Reportable 10/03/20 09:42 Sickle Cells Not Reportable 10/03/20 09:42 Target Cells Not Reportable 10/03/20 09:42 Tear Drop Cells Not Reportable 10/03/20 09:42 Ovalocytes Not Reportable 10/03/20 09:42 Helmet Cells Not Reportable 10/03/20 09:42 English-[place] Bodies Not Reportable 10/03/20 09:42 [place] Rings Not Reportable 10/03/20 09:42 [place] Cells Not Reportable 10/03/20 09:42 Bite Cells Not Reportable 10/03/20 09:42 Crenated Cell Not Reportable 10/03/20 09:42 Elliptocytes Not Reportable 10/03/20 09:42 Acanthocytes (Spur) Not Reportable 10/03/20 09:42 Rouleaux Not Reportable 10/03/20 09:42 Hemoglobin C Crystals Not Reportable 10/03/20 09:42 Schistocytes Not Reportable 10/03/20 09:42 Malaria parasites Not Reportable 10/03/20 09:42 Harish Bodies Not Reportable 10/03/20 09:42 Hem Pathologist Commnt No 10/03/20 09:42 Sodium 141 mmol/L (137-145) 10/03/20 09:42 Potassium 4.3 mmol/L (3.6-5.0) 10/03/20 09:42 Chloride 104.9 mmol/L (98-107) 10/03/20 09:42 Carbon Dioxide 25 mmol/L (22-30) 10/03/20 09:42 Anion Gap 15 mmol/L 10/03/20 09:42 BUN 11 mg/dL (9-20) 10/03/20 09:42 Creatinine 1.0 mg/dL (0.8-1.3) 10/03/20 09:42 Estimated GFR > 60 ml/min 10/03/20 09:42 BUN/Creatinine Ratio 11 % 10/03/20 09:42 Glucose 109 mg/dL (75-100) H 10/03/20 09:42 POC Glucose 93 mg/dL (70-105) 10/01/20 20:51 Hemoglobin A1c 4.5 % (4-6) 10/03/20 09:42 Calcium 9.2 mg/dL (8.4-10.2) 10/03/20 09:42 Total Bilirubin 1.00 mg/dL (0.1-1.2) 10/03/20 09:42 AST 22 units/L (5-40) 10/03/20 09:42 ALT 19 units/L (7-56) 10/03/20 09:42 Alkaline Phosphatase 47 units/L (35-129) 10/03/20 09:42 Total Protein 6.7 g/dL (6.3-8.2) 10/03/20 09:42 Albumin 4.3 g/dL (3.9-5) 10/03/20 09:42 Albumin/Globulin Ratio 1.8 % 10/03/20 09:42 Triglycerides 133 mg/dL (2-149) 10/03/20 09:42 Cholesterol 127 mg/dL (50-199) 10/03/20 09:42 LDL Cholesterol Direct 71 mg/dL (50-130) 10/03/20 09:42 HDL Cholesterol 49 mg/dL (40-59) 10/03/20 09:42 Cholesterol/HDL Ratio 2.59 % 10/03/20 09:42 TSH 1.710 mlU/mL (0.270-4.200) 10/03/20 09:42 Thompson/IV: Voiding Method Toilet Active Medications - Current Medications Current Medications: Generic Name Dose Route Start Last Admin Trade Name Freq PRN Reason Stop Dose Admin Fish Oil 2,000 mg 10/05/20 10:00 10/05/20 21:03 [place]-3 Fatty Acids/Fish Oil 1 Gram Cap PO 2,000 mg BID ANA Administration Lorazepam 2 mg 10/03/20 09:41 10/03/20 10:12 Lorazepam 2 Mg/Ml Vial IM 2 mg Q4H PRN Administration Agitation Melatonin 5 mg 10/02/20 22:00 Melatonin 5 Mg Tab PO QHS PRN Sleep Quetiapine Fumarate 200 mg 10/03/20 22:00 10/05/20 21:04 Quetiapine 100 Mg Tab PO 200 mg QHS ANA Administration Quetiapine Fumarate 200 mg 10/04/20 10:00 10/05/20 09:39 Quetiapine 100 Mg Tab PO 200 mg QAM ANA Administration Trazodone HCl 50 mg 10/02/20 22:00 10/05/20 21:03 Trazodone 50 Mg Tab PO 50 mg QHS ANA Administration Valproic Acid 500 mg 10/03/20 10:00 10/05/20 21:03 Valproic Acid 250 Mg Cap PO 500 mg BID ANA Administration
--- NOTE | 2020-10-06 07:36 | Progress Note ---
Subjective Date of service: 10/06/20 Principal diagnosis: (1) Acute schizophrenia Subjective Comment: Per Psych Nurse: [id number] Pt. in and out the activity room part of the day, calm cooperative and med compliant. Participated in groups activities. He denies SI/HI. Med compliant and attended groups. Will continue to monitor pt. pt initially was not present for group but was prompt/ encouraged by tech to come oor and participate in group. pt was cooperative. when pt arrived to group, he sat with his back against the group and facing the window. pt was drowsy and dosed off often but was attentive when the numbers were called. panel wirer observed pt talking to self and using hand gestures. panel wirer asked pt who/what was he talking to. pt replied "I am just thinking". during group, pt exited group twice. the first time, pt was gone from group about 10-15mins. pt returned at 11:20am but proceeded to leave again at 11:23am. panel wirer left a gift ( hat) with the tech for the pt for participating in group Psych Progress HPI Patient seen this AM, he appears clam and cooperative but males tangential responses to questions with direct associations. Patient saying his sister Major "would be alright, then started talking about morning and coffee. Patient is compliant with medications, laughs when asked if he hears voices. He denies SI, HI at this moment Reason for continuing inpatient treatment: Patient improving, more cooperative and response than previous, requires no security presence for evaluation and less resistant to care. Patient has chronic schizophrenia, baseline care goal is cooperativeness and compliance to medication without agitation. Planning for safety discharge. Review of Symptoms: Constitutional: Negative for weight loss ENT: Negative for stridor Respiratory: Negative for cough or hemoptysis All other systems reviewed and are negative MENTAL STATUS EXAMINATION General Appearance and Behavior: Age appropriate, good hygiene, not wearing appropriate clothes, good eye contact, cooperative polite with questioning. Cooperation: Participating/engaged Psychomotor Behavior: Psychomotor normal Mood: Good Affect and affective range: congruent with mood Thought Process:Circumstantial, Thought Content: flight off ideas Speech: normal rate and volume Intellectual Functioning: Average Suicidal Ideation: Denies SI Homicidal Ideation: Denies HI Impulse Control: Impaired Insight and Judgment: Limited insight and judgment Memory: Normal Attention: Divided attention impaired Orientation: Alert, oriented Assessment and Plan - Psychiatric problem (1) Acute schizophrenia Current Visit: Yes Status: Acute F23 Treatment Plan Continue current medications Patient admitted for inpatient psychiatric evaluation, medication adjustment and close monitoring The patient's behavior, mood, sleep and appetite will be closely monitored. Patient enrolled in individual and group therapeutic sessions and encouraged to attend. Patient provided with a safe and structured environment. Patient's physical health needs will be addressed by the Hospitalist. Hospitalist Consulted Labs including CBC, CMP, Lipid profile and Hemoglobin A1C levels ordered for baseline reference Social Assessment will be completed and the Automotive Design Layout Drafter will work with patient and family to ensure a suitable and safe disposition Medication adjustment will be made as clinically indicated Usual Wellness Jew/Preservation: - Start Trazodone 50 mg po QHS & 50 mg po QHS PRN between 10 PM & 2 AM for insomnia - Start Melatonin 5 mg po QHS to promote circadian rhythm - Start [place]-3 for brain health, reduce impulsivity, and as adjunctive treatment for mood disorder, continue upon discharge given overall benefits. - Start B1 prophylaxis with 200 mg po for 5 days The patient agreed on the treatment plan, understood the risk, benefit, alternative treatment, potential consequence of no treatment, and gave informed consent. Initial Certification Inpatient psych services: I certify that the inpatient psychiatric services are required for treatment that could reasonably be expected to improve the patient's condition. Estimated days: 4 Post hospital care: primary care provider, psychiatric provider Assessment and Plan - Patient Problems (1) Acute schizophrenia Current Visit: Yes Status: Acute Medications and Allergies Allergies Allergy/AdvReac Type Severity Reaction Status Date / Time No Known Allergies Allergy Unverified 10/01/20 16:10 Home Medications Medication Instructions Recorded Confirmed Last Taken Type VALPROIC ACID Liq [DepaKENE Liq] 250 mg PO BID 10/02/20 10/02/20 Unknown History risperiDONE [RisperDAL] 4 mg PO QHS 10/02/20 10/02/20 Unknown History Active Meds: Active Medications Fish Oil ([place]-3 Fatty Acids/Fish Oil 1 Gram Cap) 2,000 mg PO BID ANA Last Admin: 10/05/20 21:03 Dose: 2,000 mg Documented by: Lorazepam (Lorazepam 2 Mg/Ml Vial) 2 mg IM Q4H PRN PRN Reason: Agitation Last Admin: 10/03/20 10:12 Dose: 2 mg Documented by: Melatonin (Melatonin 5 Mg Tab) 5 mg PO QHS PRN PRN Reason: Sleep Quetiapine Fumarate (Quetiapine 100 Mg Tab) 200 mg PO QHS [facility] Last Admin: 10/05/20 21:04 Dose: 200 mg Documented by: Quetiapine Fumarate (Quetiapine 100 Mg Tab) 200 mg PO QAM [facility] Last Admin: 10/05/20 09:39 Dose: 200 mg Documented by: Trazodone HCl (Trazodone 50 Mg Tab) 50 mg PO QHS [facility] Last Admin: 10/05/20 21:03 Dose: 50 mg Documented by: Valproic Acid (Valproic Acid 250 Mg Cap) 500 mg PO BID [facility] Last Admin: 10/05/20 21:03 Dose: 500 mg Documented by: Results - Results Labs/Vitals: Laboratory Last Values WBC 5.5 K/mm3 (4.5-11.0) 10/03/20 09:42 RBC 4.30 M/mm3 (3.65-5.03) 10/03/20 09:42 Hgb 13.2 gm/dl (11.8-15.2) 10/03/20 09:42 Hct 39.5 % (35.5-45.6) 10/03/20 09:42 MCV 92 fl (84-94) 10/03/20 09:42 MCH 31 pg (28-32) 10/03/20 09:42 MCHC 33 % (32-34) 10/03/20 09:42 RDW 12.5 % (13.2-15.2) L 10/03/20 09:42 Plt Count 166 K/mm3 (140-440) 10/03/20 09:42 Lymph % (Auto) Horse Rancher 10/03/20 09:42 Add Manual Diff Complete 10/03/20 09:42 Total Counted 100 10/03/20 09:42 Seg Neutrophils % Horse Rancher 10/03/20 09:42 Seg Neuts % (Manual) 32.0 % (40.0-70.0) L 10/03/20 09:42 Lymphocytes % (Manual) 49.0 % (13.4-35.0) H 10/03/20 09:42 Reactive Lymphs % (Man) 5.0 % 10/03/20 09:42 Monocytes % (Manual) 12.0 % (0.0-7.3) H 10/03/20 09:42 Eosinophils % (Manual) 2.0 % (0.0-4.3) 10/03/20 09:42 Nucleated RBC % Not Reportable 10/03/20 09:42 Seg Neutrophils # Man 1.8 K/mm3 (1.8-7.7) 10/03/20 09:42 Band Neutrophils # 0.0 K/mm3 10/03/20 09:42 Lymphocytes # (Manual) 2.7 K/mm3 (1.2-5.4) 10/03/20 09:42 Abs React Lymphs (Man) 0.3 K/mm3 10/03/20 09:42 Monocytes # (Manual) 0.7 K/mm3 (0.0-0.8) 10/03/20 09:42 Eosinophils # (Manual) 0.1 K/mm3 (0.0-0.4) 10/03/20 09:42 Basophils # (Manual) 0.0 K/mm3 (0.0-0.1) 10/03/20 09:42 Metamyelocytes # 0.0 K/mm3 10/03/20 09:42 Myelocytes # 0.0 K/mm3 10/03/20 09:42 Promyelocytes # 0.0 K/mm3 10/03/20 09:42 Blast Cells # 0.0 K/mm3 10/03/20 09:42 WBC Morphology Not Reportable 10/03/20 09:42 Hypersegmented Neuts Not Reportable 10/03/20 09:42 Hyposegmented Neuts Not Reportable 10/03/20 09:42 Hypogranular Neuts Not Reportable 10/03/20 09:42 Smudge Cells Not Reportable 10/03/20 09:42 Toxic Granulation Not Reportable 10/03/20 09:42 Toxic Vacuolation Not Reportable 10/03/20 09:42 Dohle Bodies Not Reportable 10/03/20 09:42 Pelger-Huet Anomaly Not Reportable 10/03/20 09:42 Soren Rods Not Reportable 10/03/20 09:42 Platelet Estimate Consistent w auto 10/03/20 09:42 Clumped Platelets Not Reportable 10/03/20 09:42 Plt Clumps, EDTA Not Reportable 10/03/20 09:42 Large Platelets Not Reportable 10/03/20 09:42 Giant Platelets Not Reportable 10/03/20 09:42 Platelet Satelliting Not Reportable 10/03/20 09:42 Plt Morphology Comment Not Reportable 10/03/20 09:42 RBC Morphology Normal 10/03/20 09:42 Dimorphic RBCs Not Reportable 10/03/20 09:42 Polychromasia Not Reportable 10/03/20 09:42 Hypochromasia Not Reportable 10/03/20 09:42 Poikilocytosis Not Reportable 10/03/20 09:42 Anisocytosis Not Reportable 10/03/20 09:42 Microcytosis Not Reportable 10/03/20 09:42 Macrocytosis Not Reportable 10/03/20 09:42 Spherocytes Not Reportable 10/03/20 09:42 Pappenheimer Bodies Not Reportable 10/03/20 09:42 Sickle Cells Not Reportable 10/03/20 09:42 Target Cells Not Reportable 10/03/20 09:42 Tear Drop Cells Not Reportable 10/03/20 09:42 Ovalocytes Not Reportable 10/03/20 09:42 Helmet Cells Not Reportable 10/03/20 09:42 [place] Bodies Not Reportable 10/03/20 09:42 [place] Rings Not Reportable 10/03/20 09:42 [place] Cells Not Reportable 10/03/20 09:42 Bite Cells Not Reportable 10/03/20 09:42 Crenated Cell Not Reportable 10/03/20 09:42 Elliptocytes Not Reportable 10/03/20 09:42 Acanthocytes (Spur) Not Reportable 10/03/20 09:42 Rouleaux Not Reportable 10/03/20 09:42 Hemoglobin C Crystals Not Reportable 10/03/20 09:42 Schistocytes Not Reportable 10/03/20 09:42 Malaria parasites Not Reportable 10/03/20 09:42 Harish Bodies Not Reportable 10/03/20 09:42 Hem Pathologist Commnt No 10/03/20 09:42 Sodium 141 mmol/L (137-145) 10/03/20 09:42 Potassium 4.3 mmol/L (3.6-5.0) 10/03/20 09:42 Chloride 104.9 mmol/L (98-107) 10/03/20 09:42 Carbon Dioxide 25 mmol/L (22-30) 10/03/20 09:42 Anion Gap 15 mmol/L 10/03/20 09:42 BUN 11 mg/dL (9-20) 10/03/20 09:42 Creatinine 1.0 mg/dL (0.8-1.3) 10/03/20 09:42 Estimated GFR > 60 ml/min 10/03/20 09:42 BUN/Creatinine Ratio 11 % 10/03/20 09:42 Glucose 109 mg/dL (75-100) H 10/03/20 09:42 POC Glucose 93 mg/dL (70-105) 10/01/20 20:51 Hemoglobin A1c 4.5 % (4-6) 10/03/20 09:42 Calcium 9.2 mg/dL (8.4-10.2) 10/03/20 09:42 Total Bilirubin 1.00 mg/dL (0.1-1.2) 10/03/20 09:42 AST 22 units/L (5-40) 10/03/20 09:42 ALT 19 units/L (7-56) 10/03/20 09:42 Alkaline Phosphatase 47 units/L (35-129) 10/03/20 09:42 Total Protein 6.7 g/dL (6.3-8.2) 10/03/20 09:42 Albumin 4.3 g/dL (3.9-5) 10/03/20 09:42 Albumin/Globulin Ratio 1.8 % 10/03/20 09:42 Triglycerides 133 mg/dL (2-149) 10/03/20 09:42 Cholesterol 127 mg/dL (50-199) 10/03/20 09:42 LDL Cholesterol Direct 71 mg/dL (50-130) 10/03/20 09:42 HDL Cholesterol 49 mg/dL (40-59) 10/03/20 09:42 Cholesterol/HDL Ratio 2.59 % 10/03/20 09:42 TSH 1.710 mlU/mL (0.270-4.200) 10/03/20 09:42 Last Vital Signs Temp 97.9 F 10/05/20 19:56 Pulse 80 10/05/20 19:56 Resp 16 10/05/20 19:56 BP 122/64 10/05/20 19:56 Pulse Ox 97 10/05/20 19:56
[2020-10-06] MEDS: OMEGA-3 FATTY ACIDS/FISH OIL 1 GRAM CAP PO SCH ×2 (10:48→21:03)
[2020-10-06] MEDS: QUEtiapine 100 MG TAB PO SCH ×2 (10:49→21:03)
[2020-10-06] MEDS: VALPROIC ACID 250 MG CAP PO SCH ×2 (10:49→21:05)
--- NOTE | 2020-10-06 12:43 | Progress Note ---
Subjective Date of service: 10/06/20 Principal diagnosis: (1) Acute schizophrenia Medications and Allergies Allergies Allergy/AdvReac Type Severity Reaction Status Date / Time No Known Allergies Allergy Unverified 10/01/20 16:10 Home Medications Medication Instructions Recorded Confirmed Last Taken Type VALPROIC ACID Liq [DepaKENE Liq] 250 mg PO BID 10/02/20 10/02/20 Unknown History risperiDONE [RisperDAL] 4 mg PO QHS 10/02/20 10/02/20 Unknown History Active Meds: Active Medications Fish Oil ([place]-3 Fatty Acids/Fish Oil 1 Gram Cap) 2,000 mg PO BID [facility] Last Admin: 10/06/20 10:48 Dose: 2,000 mg Documented by: Lorazepam (Lorazepam 2 Mg/Ml Vial) 2 mg IM Q4H PRN PRN Reason: Agitation Last Admin: 10/03/20 10:12 Dose: 2 mg Documented by: Melatonin (Melatonin 5 Mg Tab) 5 mg PO QHS PRN PRN Reason: Sleep Quetiapine Fumarate (Quetiapine 100 Mg Tab) 200 mg PO QHS [facility] Last Admin: 10/05/20 21:04 Dose: 200 mg Documented by: Quetiapine [facility]umarate ([facility] 100 Mg Tab) [facility] Last Admin: 10/06/20 10:49 Dose: 200 mg Documented by: Trazodone HCl (Trazodone 50 Mg Tab) 50 mg PO QHS [facility] Last Admin: 10/05/20 21:03 Dose: 50 mg Documented by: Valproic Acid (Valproic Acid 250 Mg Cap) 500 mg PO BID [facility] Last Admin: 10/06/20 10:49 Dose: 500 mg Documented by: Results - Results Labs/Vitals: Laboratory Last Values WBC 5.5 K/mm3 (4.5-11.0) 10/03/20 09:42 RBC 4.30 M/mm3 (3.65-5.03) 10/03/20 09:42 Hgb 13.2 gm/dl (11.8-15.2) 10/03/20 09:42 Hct 39.5 % (35.5-45.6) 10/03/20 09:42 MCV 92 fl (84-94) 10/03/20 09:42 MCH 31 pg (28-32) 10/03/20 09:42 MCHC 33 % (32-34) 10/03/20 09:42 RDW 12.5 % (13.2-15.2) L 10/03/20 09:42 Plt Count 166 K/mm3 (140-440) 10/03/20 09:42 Lymph % (Auto) Rigger Helper 10/03/20 09:42 Add Manual Diff Complete 10/03/20 09:42 Total Counted 100 10/03/20 09:42 Seg Neutrophils % Rigger Helper 10/03/20 09:42 Seg Neuts % (Manual) 32.0 % (40.0-70.0) L 10/03/20 09:42 Lymphocytes % (Manual) 49.0 % (13.4-35.0) H 10/03/20 09:42 Reactive Lymphs % (Man) 5.0 % 10/03/20 09:42 Monocytes % (Manual) 12.0 % (0.0-7.3) H 10/03/20 09:42 Eosinophils % (Manual) 2.0 % (0.0-4.3) 10/03/20 09:42 Nucleated RBC % Not Reportable 10/03/20 09:42 Seg Neutrophils # Man 1.8 K/mm3 (1.8-7.7) 10/03/20 09:42 Band Neutrophils # 0.0 K/mm3 10/03/20 09:42 Lymphocytes # (Manual) 2.7 K/mm3 (1.2-5.4) 10/03/20 09:42 Abs React Lymphs (Man) 0.3 K/mm3 10/03/20 09:42 Monocytes # (Manual) 0.7 K/mm3 (0.0-0.8) 10/03/20 09:42 Eosinophils # (Manual) 0.1 K/mm3 (0.0-0.4) 10/03/20 09:42 Basophils # (Manual) 0.0 K/mm3 (0.0-0.1) 10/03/20 09:42 Metamyelocytes # 0.0 K/mm3 10/03/20 09:42 Myelocytes # 0.0 K/mm3 10/03/20 09:42 Promyelocytes # 0.0 K/mm3 10/03/20 09:42 Blast Cells # 0.0 K/mm3 10/03/20 09:42 WBC Morphology Not Reportable 10/03/20 09:42 Hypersegmented Neuts Not Reportable 10/03/20 09:42 Hyposegmented Neuts Not Reportable 10/03/20 09:42 Hypogranular Neuts Not Reportable 10/03/20 09:42 Smudge Cells Not Reportable 10/03/20 09:42 Toxic Granulation Not Reportable 10/03/20 09:42 Toxic Vacuolation Not Reportable 10/03/20 09:42 Dohle Bodies Not Reportable 10/03/20 09:42 Pelger-Huet Anomaly Not Reportable 10/03/20 09:42 Soren Rods Not Reportable 10/03/20 09:42 Platelet Estimate Consistent w auto 10/03/20 09:42 Clumped Platelets Not Reportable 10/03/20 09:42 Plt Clumps, EDTA Not Reportable 10/03/20 09:42 Large Platelets Not Reportable 10/03/20 09:42 Giant Platelets Not Reportable 10/03/20 09:42 Platelet Satelliting Not Reportable 10/03/20 09:42 Plt Morphology Comment Not Reportable 10/03/20 09:42 RBC Morphology Normal 10/03/20 09:42 Dimorphic RBCs Not Reportable 10/03/20 09:42 Polychromasia Not Reportable 10/03/20 09:42 Hypochromasia Not Reportable 10/03/20 09:42 Poikilocytosis Not Reportable 10/03/20 09:42 Anisocytosis Not Reportable 10/03/20 09:42 Microcytosis Not Reportable 10/03/20 09:42 Macrocytosis Not Reportable 10/03/20 09:42 Spherocytes Not Reportable 10/03/20 09:42 Pappenheimer Bodies Not Reportable 10/03/20 09:42 Sickle Cells Not Reportable 10/03/20 09:42 Target Cells Not Reportable 10/03/20 09:42 Tear Drop Cells Not Reportable 10/03/20 09:42 Ovalocytes Not Reportable 10/03/20 09:42 Helmet Cells Not Reportable 10/03/20 09:42 [place] Bodies Not Reportable 10/03/20 09:42 [place] Rings Not Reportable 10/03/20 09:42 [place] Cells Not Reportable 10/03/20 09:42 Bite Cells Not Reportable 10/03/20 09:42 Crenated Cell Not Reportable 10/03/20 09:42 Elliptocytes Not Reportable 10/03/20 09:42 Acanthocytes (Spur) Not Reportable 10/03/20 09:42 Rouleaux Not Reportable 10/03/20 09:42 Hemoglobin C Crystals Not Reportable 10/03/20 09:42 Schistocytes Not Reportable 10/03/20 09:42 Malaria parasites Not Reportable 10/03/20 09:42 Harish Bodies Not Reportable 10/03/20 09:42 Hem Pathologist Commnt No 10/03/20 09:42 Sodium 141 mmol/L (137-145) 10/03/20 09:42 Potassium 4.3 mmol/L (3.6-5.0) 10/03/20 09:42 Chloride 104.9 mmol/L (98-107) 10/03/20 09:42 Carbon Dioxide 25 mmol/L (22-30) 10/03/20 09:42 Anion Gap 15 mmol/L 10/03/20 09:42 BUN 11 mg/dL (9-20) 10/03/20 09:42 Creatinine 1.0 mg/dL (0.8-1.3) 10/03/20 09:42 Estimated GFR > 60 ml/min 10/03/20 09:42 BUN/Creatinine Ratio 11 % 10/03/20 09:42 Glucose 109 mg/dL (75-100) H 10/03/20 09:42 POC Glucose 93 mg/dL (70-105) 10/01/20 20:51 Hemoglobin A1c 4.5 % (4-6) 10/03/20 09:42 Calcium 9.2 mg/dL (8.4-10.2) 10/03/20 09:42 Total Bilirubin 1.00 mg/dL (0.1-1.2) 10/03/20 09:42 AST 22 units/L (5-40) 10/03/20 09:42 ALT 19 units/L (7-56) 10/03/20 09:42 Alkaline Phosphatase 47 units/L (35-129) 10/03/20 09:42 Total Protein 6.7 g/dL (6.3-8.2) 10/03/20 09:42 Albumin 4.3 g/dL (3.9-5) 10/03/20 09:42 Albumin/Globulin Ratio 1.8 % 10/03/20 09:42 Triglycerides 133 mg/dL (2-149) 10/03/20 09:42 Cholesterol 127 mg/dL (50-199) 10/03/20 09:42 LDL Cholesterol Direct 71 mg/dL (50-130) 10/03/20 09:42 HDL Cholesterol 49 mg/dL (40-59) 10/03/20 09:42 Cholesterol/HDL Ratio 2.59 % 10/03/20 09:42 TSH 1.710 mlU/mL (0.270-4.200) 10/03/20 09:42 Last Vital Signs Temp 98.6 F 10/06/20 09:25 Pulse 76 10/06/20 09:25 Resp 16 10/06/20 09:25 BP 121/63 10/06/20 09:25 Pulse Ox 97 10/06/20 09:25
--- NOTE | 2020-10-06 13:54 | Progress Note ---
Subjective Date of service: 10/06/20 Principal diagnosis: (1) Acute schizophrenia Subjective Comment: Patient Name: APOLONIA HONEYCUTT JR. Date of : 77 Patient Status: Inpatient Attending Provider: JERRY MONTGOMERY Date: 10/06/20 07:35 Initialization Date: 10/06/20 07:35 Subjective Date of service: 10/06/20 Principal diagnosis: (1) Acute schizophrenia Subjective Comment: Per Psych Nurse: [id number] Pt. in and out the activity room part of the day, calm cooperative and med compliant. Participated in groups activities. He denies SI/HI. Med compliant and attended groups. Will continue to monitor pt. pt initially was not present for group but was prompt/ encouraged by tech to come oor and participate in group. pt was cooperative. when pt arrived to group, he sat with his back against the group and facing the window. pt was drowsy and dosed off often but was attentive when the numbers were called. reimbursement coordinator observed pt talking to self and using hand gestures. reimbursement coordinator asked pt who/what was he talking to. pt replied "I am just thinking". during group, pt exited group twice. the first time, pt was gone from group about 10-15mins. pt returned at 11:20am but proceeded to leave again at 11:23am. reimbursement coordinator left a gift ( hat) with the tech for the pt for participating in group Psych Progress HPI Patient assessment completed. Patient is alert and cooperative with interview. Appears pleasant, happy, and exhibit no depressed mood. However, keeps talking about his sister and said that "i talked to my sister, Major this morning; she is good and staying at home safely". Patient reports eats good and sleeps very well with no nightmare or flashback last night; Compliant with medications. Denies anxiety, agitation, hypomania or joe. Also, denies SI/HI, and visual/auditory hallucinations. Reason for continuing inpatient treatment: Patient display improving much; very cooperative with interview and compliant with medications. will continue to monitor patient's mood and mental stability. Review of Symptoms: Constitutional: Negative for weight loss ENT: Negative for strider Respiratory: Negative for cough or hemoptysis All other systems reviewed and are negative MENTAL STATUS EXAMINATION General Appearance and Behavior: Age appropriate, wearing appropriate clothes, good eye contact, cooperative and polite with questioning. Cooperation: Participating/engaged Psychomotor Behavior: Psychomotor normal Mood: Good Affect and affective range: congruent with mood Thought Process:Circumstantial, Thought Content: flight off ideas Speech: normal rate and volume Intellectual Functioning: Average Suicidal Ideation: Denies SI Homicidal Ideation: Denies HI Impulse Control: unimpaired Insight and Judgment: Limited insight and judgment Memory: Normal Attention: Divided attention impaired Orientation: Alert, oriented Medications and Allergies Allergies Allergy/AdvReac Type Severity Reaction Status Date / Time No Known Allergies Allergy Unverified 10/01/20 16:10 Home Medications Medication Instructions Recorded Confirmed Last Taken Type VALPROIC ACID Liq [DepaKENE Liq] 250 mg PO BID 10/02/20 10/02/20 Unknown History risperiDONE [RisperDAL] 4 mg PO QHS 10/02/20 10/02/20 Unknown History Active Meds: Active Medications Fish Oil ([place]-3 Fatty Acids/Fish Oil 1 Gram Cap) 2,000 mg PO BID [facility] Last Admin: 10/06/20 10:48 Dose: 2,000 mg Documented by: Lorazepam (Lorazepam 2 Mg/Ml Vial) 2 mg IM Q4H PRN PRN Reason: Agitation Last Admin: 10/03/20 10:12 Dose: 2 mg Documented by: Melatonin (Melatonin 5 Mg Tab) 5 mg PO QHS PRN PRN Reason: Sleep Quetiapine Fumarate (Quetiapine 100 Mg Tab) 200 mg PO QHS [facility] Last Admin: 10/05/20 21:04 Dose: 200 mg Documented by: Quetiapine Fumarate (Quetiapine 100 Mg Tab) [facility] Last Admin: 10/06/20 10:49 Dose: 200 mg Documented by: Trazodone HCl (Trazodone 50 Mg Tab) 50 mg PO QHS [facility] Last Admin: 10/05/20 21:03 Dose: 50 mg Documented by: Valproic Acid (Valproic Acid 250 Mg Cap) 500 mg PO BID [facility] Last Admin: 10/06/20 10:49 Dose: 500 mg Documented by: Results - Results Labs/Vitals: Laboratory Last Values WBC 5.5 K/mm3 (4.5-11.0) 10/03/20 09:42 RBC 4.30 M/mm3 (3.65-5.03) 10/03/20 09:42 Hgb 13.2 gm/dl (11.8-15.2) 10/03/20 09:42 Hct 39.5 % (35.5-45.6) 10/03/20 09:42 MCV 92 fl (84-94) 10/03/20 09:42 MCH 31 pg (28-32) 10/03/20 09:42 MCHC 33 % (32-34) 10/03/20 09:42 RDW 12.5 % (13.2-15.2) L 10/03/20 09:42 Plt Count 166 K/mm3 (140-440) 10/03/20 09:42 Lymph % (Auto) Outboard Technician 10/03/20 09:42 Add Manual Diff Complete 10/03/20 09:42 Total Counted 100 10/03/20 09:42 Seg Neutrophils % Outboard Technician 10/03/20 09:42 Seg Neuts % (Manual) 32.0 % (40.0-70.0) L 10/03/20 09:42 Lymphocytes % (Manual) 49.0 % (13.4-35.0) H 10/03/20 09:42 Reactive Lymphs % (Man) 5.0 % 10/03/20 09:42 Monocytes % (Manual) 12.0 % (0.0-7.3) H 10/03/20 09:42 Eosinophils % (Manual) 2.0 % (0.0-4.3) 10/03/20 09:42 Nucleated RBC % Not Reportable 10/03/20 09:42 Seg Neutrophils # Man 1.8 K/mm3 (1.8-7.7) 10/03/20 09:42 Band Neutrophils # 0.0 K/mm3 10/03/20 09:42 Lymphocytes # (Manual) 2.7 K/mm3 (1.2-5.4) 10/03/20 09:42 Abs React Lymphs (Man) 0.3 K/mm3 10/03/20 09:42 Monocytes # (Manual) 0.7 K/mm3 (0.0-0.8) 10/03/20 09:42 Eosinophils # (Manual) 0.1 K/mm3 (0.0-0.4) 10/03/20 09:42 Basophils # (Manual) 0.0 K/mm3 (0.0-0.1) 10/03/20 09:42 Metamyelocytes # 0.0 K/mm3 10/03/20 09:42 Myelocytes # 0.0 K/mm3 10/03/20 09:42 Promyelocytes # 0.0 K/mm3 10/03/20 09:42 Blast Cells # 0.0 K/mm3 10/03/20 09:42 WBC Morphology Not Reportable 10/03/20 09:42 Hypersegmented Neuts Not Reportable 10/03/20 09:42 Hyposegmented Neuts Not Reportable 10/03/20 09:42 Hypogranular Neuts Not Reportable 10/03/20 09:42 Smudge Cells Not Reportable 10/03/20 09:42 Toxic Granulation Not Reportable 10/03/20 09:42 Toxic Vacuolation Not Reportable 10/03/20 09:42 Dohle Bodies Not Reportable 10/03/20 09:42 Pelger-Huet Anomaly Not Reportable 10/03/20 09:42 Soren Rods Not Reportable 10/03/20 09:42 Platelet Estimate Consistent w auto 10/03/20 09:42 Clumped Platelets Not Reportable 10/03/20 09:42 Plt Clumps, EDTA Not Reportable 10/03/20 09:42 Large Platelets Not Reportable 10/03/20 09:42 Giant Platelets Not Reportable 10/03/20 09:42 Platelet Satelliting Not Reportable 10/03/20 09:42 Plt Morphology Comment Not Reportable 10/03/20 09:42 RBC Morphology Normal 10/03/20 09:42 Dimorphic RBCs Not Reportable 10/03/20 09:42 Polychromasia Not Reportable 10/03/20 09:42 Hypochromasia Not Reportable 10/03/20 09:42 Poikilocytosis Not Reportable 10/03/20 09:42 Anisocytosis Not Reportable 10/03/20 09:42 Microcytosis Not Reportable 10/03/20 09:42 Macrocytosis Not Reportable 10/03/20 09:42 Spherocytes Not Reportable 10/03/20 09:42 Pappenheimer Bodies Not Reportable 10/03/20 09:42 Sickle Cells Not Reportable 10/03/20 09:42 Target Cells Not Reportable 10/03/20 09:42 Tear Drop Cells Not Reportable 10/03/20 09:42 Ovalocytes Not Reportable 10/03/20 09:42 Helmet Cells Not Reportable 10/03/20 09:42 [place] Bodies Not Reportable 10/03/20 09:42 [place] Rings Not Reportable 10/03/20 09:42 [place] Cells Not Reportable 10/03/20 09:42 Bite Cells Not Reportable 10/03/20 09:42 Crenated Cell Not Reportable 10/03/20 09:42 Elliptocytes Not Reportable 10/03/20 09:42 Acanthocytes (Spur) Not Reportable 10/03/20 09:42 Rouleaux Not Reportable 10/03/20 09:42 Hemoglobin C Crystals Not Reportable 10/03/20 09:42 Schistocytes Not Reportable 10/03/20 09:42 Malaria parasites Not Reportable 10/03/20 09:42 Harish Bodies Not Reportable 10/03/20 09:42 Hem Pathologist Commnt No 10/03/20 09:42 Sodium 141 mmol/L (137-145) 10/03/20 09:42 Potassium 4.3 mmol/L (3.6-5.0) 10/03/20 09:42 Chloride 104.9 mmol/L (98-107) 10/03/20 09:42 Carbon Dioxide 25 mmol/L (22-30) 10/03/20 09:42 Anion Gap 15 mmol/L 10/03/20 09:42 BUN 11 mg/dL (9-20) 10/03/20 09:42 Creatinine 1.0 mg/dL (0.8-1.3) 10/03/20 09:42 Estimated GFR > 60 ml/min 10/03/20 09:42 BUN/Creatinine Ratio 11 % 10/03/20 09:42 Glucose 109 mg/dL (75-100) H 10/03/20 09:42 POC Glucose 93 mg/dL (70-105) 10/01/20 20:51 Hemoglobin A1c 4.5 % (4-6) 10/03/20 09:42 Calcium 9.2 mg/dL (8.4-10.2) 10/03/20 09:42 Total Bilirubin 1.00 mg/dL (0.1-1.2) 10/03/20 09:42 AST 22 units/L (5-40) 10/03/20 09:42 ALT 19 units/L (7-56) 10/03/20 09:42 Alkaline Phosphatase 47 units/L (35-129) 10/03/20 09:42 Total Protein 6.7 g/dL (6.3-8.2) 10/03/20 09:42 Albumin 4.3 g/dL (3.9-5) 10/03/20 09:42 Albumin/Globulin Ratio 1.8 % 10/03/20 09:42 Triglycerides 133 mg/dL (2-149) 10/03/20 09:42 Cholesterol 127 mg/dL (50-199) 10/03/20 09:42 LDL Cholesterol Direct 71 mg/dL (50-130) 10/03/20 09:42 HDL Cholesterol 49 mg/dL (40-59) 10/03/20 09:42 Cholesterol/HDL Ratio 2.59 % 10/03/20 09:42 TSH 1.710 mlU/mL (0.270-4.200) 10/03/20 09:42 Last Vital Signs Temp 98.6 F 10/06/20 09:25 Pulse 76 10/06/20 09:25 Resp 16 10/06/20 09:25 BP 121/63 10/06/20 09:25 Pulse Ox 97 10/06/20 09:25
[2020-10-06] MEDS: traZODone 50 MG TAB PO SCH (21:04)
--- NOTE | 2020-10-07 07:24 | Discharge Summary ---
Providers - Providers Date of Admission: 10/01/20 20:40 Date of discharge: 10/07/20 Attending physician: JERRY MONTGOMERY MD 10/01/20 16:15 Consult to Physician [CONS] Routine Comment: Consulting Provider: KAYLYN SANCHEZ Physician Instructions: Reason For Exam: History and physical and Medical management Primary care physician: MANAGER EDUCATION Hospitalization Reason for admission: psychosis Admitting Diagnosis: F20.9 - SCHIZOPHRENIA, UNSPECIFIED Disposition: DC-01 TO HOME OR SELFCARE Time spent for discharge: 38 Allergies/Adverse Reactions: Allergies No Known Allergies Allergy (Unverified 10/01/20 16:10) Vital Signs: Last Vital Signs Temp 98.0 F 10/06/20 19:18 Pulse 79 10/06/20 19:18 Resp 16 10/06/20 19:18 BP 118/69 10/06/20 19:18 Pulse Ox 94 10/06/20 19:18 Last Lab: Laboratory Last Values WBC 5.5 K/mm3 (4.5-11.0) 10/03/20 09:42 RBC 4.30 M/mm3 (3.65-5.03) 10/03/20 09:42 Hgb 13.2 gm/dl (11.8-15.2) 10/03/20 09:42 Hct 39.5 % (35.5-45.6) 10/03/20 09:42 MCV 92 fl (84-94) 10/03/20 09:42 MCH 31 pg (28-32) 10/03/20 09:42 MCHC 33 % (32-34) 10/03/20 09:42 RDW 12.5 % (13.2-15.2) L 10/03/20 09:42 Plt Count 166 K/mm3 (140-440) 10/03/20 09:42 Lymph % (Auto) [employer] 10/03/20 09:42 Add Manual Diff Complete 10/03/20 09:42 Total Counted 100 10/03/20 09:42 Seg Neutrophils % [employer] 10/03/20 09:42 Seg Neuts % (Manual) 32.0 % (40.0-70.0) L 10/03/20 09:42 Lymphocytes % (Manual) 49.0 % (13.4-35.0) H 10/03/20 09:42 Reactive Lymphs % (Man) 5.0 % 10/03/20 09:42 Monocytes % (Manual) 12.0 % (0.0-7.3) H 10/03/20 09:42 Eosinophils % (Manual) 2.0 % (0.0-4.3) 10/03/20 09:42 Nucleated RBC % Not Reportable 10/03/20 09:42 Seg Neutrophils # Man 1.8 K/mm3 (1.8-7.7) 10/03/20 09:42 Band Neutrophils # 0.0 K/mm3 10/03/20 09:42 Lymphocytes # (Manual) 2.7 K/mm3 (1.2-5.4) 10/03/20 09:42 Abs React Lymphs (Man) 0.3 K/mm3 10/03/20 09:42 Monocytes # (Manual) 0.7 K/mm3 (0.0-0.8) 10/03/20 09:42 Eosinophils # (Manual) 0.1 K/mm3 (0.0-0.4) 10/03/20 09:42 Basophils # (Manual) 0.0 K/mm3 (0.0-0.1) 10/03/20 09:42 Metamyelocytes # 0.0 K/mm3 10/03/20 09:42 Myelocytes # 0.0 K/mm3 10/03/20 09:42 Promyelocytes # 0.0 K/mm3 10/03/20 09:42 Blast Cells # 0.0 K/mm3 10/03/20 09:42 WBC Morphology Not Reportable 10/03/20 09:42 Hypersegmented Neuts Not Reportable 10/03/20 09:42 Hyposegmented Neuts Not Reportable 10/03/20 09:42 Hypogranular Neuts Not Reportable 10/03/20 09:42 Smudge Cells Not Reportable 10/03/20 09:42 Toxic Granulation Not Reportable 10/03/20 09:42 Toxic Vacuolation Not Reportable 10/03/20 09:42 Dohle Bodies Not Reportable 10/03/20 09:42 Pelger-Huet Anomaly Not Reportable 10/03/20 09:42 Soren Rods Not Reportable 10/03/20 09:42 Platelet Estimate Consistent w auto 10/03/20 09:42 Clumped Platelets Not Reportable 10/03/20 09:42 Plt Clumps, EDTA Not Reportable 10/03/20 09:42 Large Platelets Not Reportable 10/03/20 09:42 Giant Platelets Not Reportable 10/03/20 09:42 Platelet Satelliting Not Reportable 10/03/20 09:42 Plt Morphology Comment Not Reportable 10/03/20 09:42 RBC Morphology Normal 10/03/20 09:42 Dimorphic RBCs Not Reportable 10/03/20 09:42 Polychromasia Not Reportable 10/03/20 09:42 Hypochromasia Not Reportable 10/03/20 09:42 Poikilocytosis Not Reportable 10/03/20 09:42 Anisocytosis Not Reportable 10/03/20 09:42 Microcytosis Not Reportable 10/03/20 09:42 Macrocytosis Not Reportable 10/03/20 09:42 Spherocytes Not Reportable 10/03/20 09:42 Pappenheimer Bodies Not Reportable 10/03/20 09:42 Sickle Cells Not Reportable 10/03/20 09:42 Target Cells Not Reportable 10/03/20 09:42 Tear Drop Cells Not Reportable 10/03/20 09:42 Ovalocytes Not Reportable 10/03/20 09:42 Helmet Cells Not Reportable 10/03/20 09:42 [place] Bodies Not Reportable 10/03/20 09:42 [place] Rings Not Reportable 10/03/20 09:42 [place] Cells Not Reportable 10/03/20 09:42 Bite Cells Not Reportable 10/03/20 09:42 Crenated Cell Not Reportable 10/03/20 09:42 Elliptocytes Not Reportable 10/03/20 09:42 Acanthocytes (Spur) Not Reportable 10/03/20 09:42 Rouleaux Not Reportable 10/03/20 09:42 Hemoglobin C Crystals Not Reportable 10/03/20 09:42 Schistocytes Not Reportable 10/03/20 09:42 Malaria parasites Not Reportable 10/03/20 09:42 Harish Bodies Not Reportable 10/03/20 09:42 Hem Pathologist Commnt No 10/03/20 09:42 Sodium 141 mmol/L (137-145) 10/03/20 09:42 Potassium 4.3 mmol/L (3.6-5.0) 10/03/20 09:42 Chloride 104.9 mmol/L (98-107) 10/03/20 09:42 Carbon Dioxide 25 mmol/L (22-30) 10/03/20 09:42 Anion Gap 15 mmol/L 10/03/20 09:42 BUN 11 mg/dL (9-20) 10/03/20 09:42 Creatinine 1.0 mg/dL (0.8-1.3) 10/03/20 09:42 Estimated GFR > 60 ml/min 10/03/20 09:42 BUN/Creatinine Ratio 11 % 10/03/20 09:42 Glucose 109 mg/dL (75-100) H 10/03/20 09:42 POC Glucose 93 mg/dL (70-105) 10/01/20 20:51 Hemoglobin A1c 4.5 % (4-6) 10/03/20 09:42 Calcium 9.2 mg/dL (8.4-10.2) 10/03/20 09:42 Total Bilirubin 1.00 mg/dL (0.1-1.2) 10/03/20 09:42 AST 22 units/L (5-40) 10/03/20 09:42 ALT 19 units/L (7-56) 10/03/20 09:42 Alkaline Phosphatase 47 units/L (35-129) 10/03/20 09:42 Total Protein 6.7 g/dL (6.3-8.2) 10/03/20 09:42 Albumin 4.3 g/dL (3.9-5) 10/03/20 09:42 Albumin/Globulin Ratio 1.8 % 10/03/20 09:42 Triglycerides 133 mg/dL (2-149) 10/03/20 09:42 Cholesterol 127 mg/dL (50-199) 10/03/20 09:42 LDL Cholesterol Direct 71 mg/dL (50-130) 10/03/20 09:42 HDL Cholesterol 49 mg/dL (40-59) 10/03/20 09:42 Cholesterol/HDL Ratio 2.59 % 10/03/20 09:42 TSH 1.710 mlU/mL (0.270-4.200) 10/03/20 09:42 Free T3 Index 3.0 pg/mL (2.3-4.2) 10/03/20 09:42 Core Measure Documentation - Palliative Care Palliative Care/ Comfort Measures: Not Applicable - Core Measures Any of the following diagnoses?: none Exam - Constitutional Vitals: Temp Pulse Resp BP Pulse Ox 98.0 F 79 16 118/69 94 10/06/20 19:18 10/06/20 19:18 10/06/20 19:18 10/06/20 19:18 10/06/20 19:18 General appearance: Present: no acute distress - EENT Eyes: Present: PERRL, EOM intact ENT: hearing intact, clear oral mucosa - Neck Neck: Present: supple, normal ROM - Respiratory Respiratory effort: normal Plan Activity: advance as tolerated Weight Bearing Status: Weight Bear as Tolerated Care Plan Goals: Maintain good and stable mental health Plan of Treatment: The patient should be compliant with medications, not to use drugs, and not to drink alcohol. The patient understands that if suicidal ideas, homicidal ideas or any endangering feeling arise, the patient should seek assistance including, but not limited to crisis hotline, and emergency room. Assessment: Schizophrenia Follow up with: PRIMARY CARE, [Primary Care Provider] - 7 Days Prescriptions: traZODone [Desyrel] 50 mg PO QHS #30 tablet Melatonin [Melatonin 5MG TAB] 5 mg PO QHS PRN #30 tablet PRN Reason: Sleep Valproic Acid [Depakene] 500 mg PO BID #60 capsule [place]-3 Fatty Acids/Fish Oil [Fish Oil] 2,000 mg PO BID #120 capsule QUEtiapine [SEROquel] 200 mg PO BID #60 tablet
[2020-10-07] MEDS: VALPROIC ACID 250 MG CAP PO SCH ×2 (09:35→21:20)
[2020-10-07] MEDS: QUEtiapine 100 MG TAB PO SCH ×2 (09:35→21:20)
[2020-10-07] MEDS: OMEGA-3 FATTY ACIDS/FISH OIL 1 GRAM CAP PO SCH ×2 (09:35→21:20)
[2020-10-07] MEDS: traZODone 50 MG TAB PO SCH (21:20)
--- NOTE | 2020-10-08 08:38 | Progress Note ---
Subjective Date of service: 10/07/20 Principal diagnosis: (1) Acute schizophrenia Subjective Comment: The patient was seen today, he is walking around pacing the unit. He says he's getting exercise in. He denies SI/HI. He also denies hallucinations. Reason for continuing inpatient treatment: Patient improving, more cooperative and response than previous, requires no security presence for evaluation and less resistant to care. Patient has chronic schizophrenia, baseline care goal is cooperativeness and compliance to medication without agitation. Planning for safety discharge. Review of Symptoms: Constitutional: Negative for weight loss ENT: Negative for stridor Respiratory: Negative for cough or hemoptysis All other systems reviewed and are negative MENTAL STATUS EXAMINATION General Appearance and Behavior: Age appropriate, good hygiene, not wearing appropriate clothes, good eye contact, cooperative polite with questioning. Cooperation: Participating/engaged Psychomotor Behavior: Psychomotor normal Mood: Good Affect and affective range: congruent with mood Thought Process:Circumstantial, Thought Content: flight off ideas Speech: normal rate and volume Intellectual Functioning: Average Suicidal Ideation: Denies SI Homicidal Ideation: Denies HI Impulse Control: Impaired Insight and Judgment: Limited insight and judgment Memory: Normal Attention: Divided attention impaired Orientation: Alert, oriented Assessment and Plan (1) Acute schizophrenia Current Visit: Yes Status: Acute F23 Treatment Plan Continue current medications Patient admitted for inpatient psychiatric evaluation, medication adjustment and close monitoring The patient's behavior, mood, sleep and appetite will be closely monitored. Patient enrolled in individual and group therapeutic sessions and encouraged to attend. Patient provided with a safe and structured environment. Patient's physical health needs will be addressed by the Hospitalist. Hospitalist Consulted Labs including CBC, CMP, Lipid profile and Hemoglobin A1C levels ordered for baseline reference Social Assessment will be completed and the Ditching Machine Operator will work with patient and family to ensure a suitable and safe disposition Medication adjustment will be made as clinically indicated Usual Wellness Amish/Preservation: - Start Trazodone 50 mg po QHS & 50 mg po QHS PRN between 10 PM & 2 AM for insomnia - Start Melatonin 5 mg po QHS to promote circadian rhythm - Start Maxwell-3 for brain health, reduce impulsivity, and as adjunctive treatment for mood disorder, continue upon discharge given overall benefits. - Start B1 prophylaxis with 200 mg po for 5 days The patient agreed on the treatment plan, understood the risk, benefit, alternative treatment, potential consequence of no treatment, and gave informed consent. Estimated days: 4 Post hospital care: primary care provider, psychiatric provider Medications and Allergies Allergies Allergy/AdvReac Type Severity Reaction Status Date / Time No Known Allergies Allergy Unverified 10/01/20 16:10 Home Medications Medication Instructions Recorded Confirmed Last Taken Type Melatonin [Melatonin 5MG TAB] 5 mg PO QHS PRN #30 tablet 10/07/20 Unknown Rx Maxwell-3 Fatty Acids/Fish Oil [Fish 2,000 mg PO BID #120 capsule 10/07/20 Unknown Rx Oil] QUEtiapine [SEROquel] 200 mg PO BID #60 tablet 10/07/20 Unknown Rx Valproic Acid [Depakene] 500 mg PO BID #60 capsule 10/07/20 Unknown Rx traZODone [Desyrel] 50 mg PO QHS #30 tablet 10/07/20 Unknown Rx Active Meds: Active Medications Fish Oil (Maxwell-3 Fatty Acids/Fish Oil 1 Gram Cap) 2,000 mg PO BID [facility] Last Admin: 10/07/20 21:20 Dose: 2,000 mg Documented by: Lorazepam (Lorazepam 2 Mg/Ml Vial) 2 mg IM Q4H PRN PRN Reason: Agitation Last Admin: 10/03/20 10:12 Dose: 2 mg Documented by: Melatonin (Melatonin 5 Mg Tab) 5 mg PO QHS PRN PRN Reason: Sleep Quetiapine Fumarate (Quetiapine 100 Mg Tab) 200 mg PO QHS [facility] Last Admin: 10/07/20 21:20 Dose: 200 mg Documented by: Quetiapine Fumarate (Qu[facility]apine 100 Mg Tab) [facility] Last Admin: 10/07/20 09:35 Dose: 200 mg Documented by: Trazodone HCl (Trazodone 50 Mg Tab) 50 mg PO QHS [facility] Last Admin: 10/07/20 21:20 Dose: 50 mg Documented by: Valproic Acid (Valproic Acid 250 Mg Cap) 500 mg PO BID [facility] Last Admin: 10/07/20 21:20 Dose: 500 mg Documented by: Results - Results Labs/Vitals: Laboratory Last Values WBC 5.5 K/mm3 (4.5-11.0) 10/03/20 09:42 RBC 4.30 M/mm3 (3.65-5.03) 10/03/20 09:42 Hgb 13.2 gm/dl (11.8-15.2) 10/03/20 09:42 Hct 39.5 % (35.5-45.6) 10/03/20 09:42 MCV 92 fl (84-94) 10/03/20 09:42 MCH 31 pg (28-32) 10/03/20 09:42 MCHC 33 % (32-34) 10/03/20 09:42 RDW 12.5 % (13.2-15.2) L 10/03/20 09:42 Plt Count 166 K/mm3 (140-440) 10/03/20 09:42 Lymph % (Auto) Pension Consultant 10/03/20 09:42 Add Manual Diff Complete 10/03/20 09:42 Total Counted 100 10/03/20 09:42 Seg Neutrophils % Pension Consultant 10/03/20 09:42 Seg Neuts % (Manual) 32.0 % (40.0-70.0) L 10/03/20 09:42 Lymphocytes % (Manual) 49.0 % (13.4-35.0) H 10/03/20 09:42 Reactive Lymphs % (Man) 5.0 % 10/03/20 09:42 Monocytes % (Manual) 12.0 % (0.0-7.3) H 10/03/20 09:42 Eosinophils % (Manual) 2.0 % (0.0-4.3) 10/03/20 09:42 Nucleated RBC % Not Reportable 10/03/20 09:42 Seg Neutrophils # Man 1.8 K/mm3 (1.8-7.7) 10/03/20 09:42 Band Neutrophils # 0.0 K/mm3 10/03/20 09:42 Lymphocytes # (Manual) 2.7 K/mm3 (1.2-5.4) 10/03/20 09:42 Abs React Lymphs (Man) 0.3 K/mm3 10/03/20 09:42 Monocytes # (Manual) 0.7 K/mm3 (0.0-0.8) 10/03/20 09:42 Eosinophils # (Manual) 0.1 K/mm3 (0.0-0.4) 10/03/20 09:42 Basophils # (Manual) 0.0 K/mm3 (0.0-0.1) 10/03/20 09:42 Metamyelocytes # 0.0 K/mm3 10/03/20 09:42 Myelocytes # 0.0 K/mm3 10/03/20 09:42 Promyelocytes # 0.0 K/mm3 10/03/20 09:42 Blast Cells # 0.0 K/mm3 10/03/20 09:42 WBC Morphology Not Reportable 10/03/20 09:42 Hypersegmented Neuts Not Reportable 10/03/20 09:42 Hyposegmented Neuts Not Reportable 10/03/20 09:42 Hypogranular Neuts Not Reportable 10/03/20 09:42 Smudge Cells Not Reportable 10/03/20 09:42 Toxic Granulation Not Reportable 10/03/20 09:42 Toxic Vacuolation Not Reportable 10/03/20 09:42 Dohle Bodies Not Reportable 10/03/20 09:42 Pelger-Huet Anomaly Not Reportable 10/03/20 09:42 Soren Rods Not Reportable 10/03/20 09:42 Platelet Estimate Consistent w auto 10/03/20 09:42 Clumped Platelets Not Reportable 10/03/20 09:42 Plt Clumps, EDTA Not Reportable 10/03/20 09:42 Large Platelets Not Reportable 10/03/20 09:42 Giant Platelets Not Reportable 10/03/20 09:42 Platelet Satelliting Not Reportable 10/03/20 09:42 Plt Morphology Comment Not Reportable 10/03/20 09:42 RBC Morphology Normal 10/03/20 09:42 Dimorphic RBCs Not Reportable 10/03/20 09:42 Polychromasia Not Reportable 10/03/20 09:42 Hypochromasia Not Reportable 10/03/20 09:42 Poikilocytosis Not Reportable 10/03/20 09:42 Anisocytosis Not Reportable 10/03/20 09:42 Microcytosis Not Reportable 10/03/20 09:42 Macrocytosis Not Reportable 10/03/20 09:42 Spherocytes Not Reportable 10/03/20 09:42 Pappenheimer Bodies Not Reportable 10/03/20 09:42 Sickle Cells Not Reportable 10/03/20 09:42 Target Cells Not Reportable 10/03/20 09:42 Tear Drop Cells Not Reportable 10/03/20 09:42 Ovalocytes Not Reportable 10/03/20 09:42 Helmet Cells Not Reportable 10/03/20 09:42 English-Lowrys Bodies Not Reportable 10/03/20 09:42 [place] Rings Not Reportable 10/03/20 09:42 Shellie Cells Not Reportable 10/03/20 09:42 Bite Cells Not Reportable 10/03/20 09:42 Crenated Cell Not Reportable 10/03/20 09:42 Elliptocytes Not Reportable 10/03/20 09:42 Acanthocytes (Spur) Not Reportable 10/03/20 09:42 Rouleaux Not Reportable 10/03/20 09:42 Hemoglobin C Crystals Not Reportable 10/03/20 09:42 Schistocytes Not Reportable 10/03/20 09:42 Malaria parasites Not Reportable 10/03/20 09:42 Harish Bodies Not Reportable 10/03/20 09:42 Hem Pathologist Commnt No 10/03/20 09:42 Sodium 141 mmol/L (137-145) 10/03/20 09:42 Potassium 4.3 mmol/L (3.6-5.0) 10/03/20 09:42 Chloride 104.9 mmol/L (98-107) 10/03/20 09:42 Carbon Dioxide 25 mmol/L (22-30) 10/03/20 09:42 Anion Gap 15 mmol/L 10/03/20 09:42 BUN 11 mg/dL (9-20) 10/03/20 09:42 Creatinine 1.0 mg/dL (0.8-1.3) 10/03/20 09:42 Estimated GFR > 60 ml/min 10/03/20 09:42 BUN/Creatinine Ratio 11 % 10/03/20 09:42 Glucose 109 mg/dL (75-100) H 10/03/20 09:42 POC Glucose 93 mg/dL (70-105) 10/01/20 20:51 Hemoglobin A1c 4.5 % (4-6) 10/03/20 09:42 Calcium 9.2 mg/dL (8.4-10.2) 10/03/20 09:42 Total Bilirubin 1.00 mg/dL (0.1-1.2) 10/03/20 09:42 AST 22 units/L (5-40) 10/03/20 09:42 ALT 19 units/L (7-56) 10/03/20 09:42 Alkaline Phosphatase 47 units/L (35-129) 10/03/20 09:42 Total Protein 6.7 g/dL (6.3-8.2) 10/03/20 09:42 Albumin 4.3 g/dL (3.9-5) 10/03/20 09:42 Albumin/Globulin Ratio 1.8 % 10/03/20 09:42 Triglycerides 133 mg/dL (2-149) 10/03/20 09:42 Cholesterol 127 mg/dL (50-199) 10/03/20 09:42 LDL Cholesterol Direct 71 mg/dL (50-130) 10/03/20 09:42 HDL Cholesterol 49 mg/dL (40-59) 10/03/20 09:42 Cholesterol/HDL Ratio 2.59 % 10/03/20 09:42 TSH 1.710 mlU/mL (0.270-4.200) 10/03/20 09:42 Free T3 Index 3.0 pg/mL (2.3-4.2) 10/03/20 09:42 Last Vital Signs Temp 98.4 F 10/07/20 19:12 Pulse 87 10/07/20 19:12 Resp 17 10/07/20 19:12 BP 121/66 10/07/20 19:12 Pulse Ox 97 10/07/20 19:12
--- NOTE | 2020-10-08 08:45 | Progress Note ---
Subjective Date of service: 10/08/20 Principal diagnosis: (1) Acute schizophrenia Subjective Comment: The patient was seen today. He is calm, and cooperative. His thoughts are a little disorganized. He says he slept good and "gotta a hold on life now." He then says "that's a song." The patient denies SI/HI. He says "I just want a cigarette." He then starts mentioning something about "cats, and lighting it up." Reason for continuing inpatient treatment: The patient has improved significantly since first admitted. Will continue to treat and monitor and will await medical social worker to plan discharge to ensue safety. Review of Symptoms: Constitutional: Negative for weight loss ENT: Negative for stridor Respiratory: Negative for cough or hemoptysis All other systems reviewed and are negative MENTAL STATUS EXAMINATION General Appearance and Behavior: Age appropriate, good hygiene, not wearing appropriate clothes, good eye contact, cooperative polite with questioning. Cooperation: Participating/engaged Psychomotor Behavior: Psychomotor normal Mood: Good Affect and affective range: congruent with mood Thought Process:Circumstantial, Thought Content: flight off ideas Speech: normal rate and volume Intellectual Functioning: Average Suicidal Ideation: Denies SI Homicidal Ideation: Denies HI Impulse Control: Impaired Insight and Judgment: Limited insight and judgment Memory: Normal Attention: Divided attention impaired Orientation: Alert, oriented Assessment and Plan (1) Acute schizophrenia Current Visit: Yes Status: Acute F23 Treatment Plan Continue current medications Patient admitted for inpatient psychiatric evaluation, medication adjustment and close monitoring The patient's behavior, mood, sleep and appetite will be closely monitored. Patient enrolled in individual and group therapeutic sessions and encouraged to attend. Patient provided with a safe and structured environment. Patient's physical health needs will be addressed by the Hospitalist. Hospitalist Consulted Labs including CBC, CMP, Lipid profile and Hemoglobin A1C levels ordered for baseline reference Social Assessment will be completed and the Head Of Music will work with patient and family to ensure a suitable and safe disposition Medication adjustment will be made as clinically indicated Usual Wellness Orthodox/Preservation: - Start Trazodone 50 mg po QHS & 50 mg po QHS PRN between 10 PM & 2 AM for insomnia - Start Melatonin 5 mg po QHS to promote circadian rhythm - Start Grace-3 for brain health, reduce impulsivity, and as adjunctive treatment for mood disorder, continue upon discharge given overall benefits. - Start B1 prophylaxis with 200 mg po for 5 days The patient agreed on the treatment plan, understood the risk, benefit, alternative treatment, potential consequence of no treatment, and gave informed consent. Estimated days: 4 Post hospital care: primary care provider, psychiatric provider Medications and Allergies Allergies Allergy/AdvReac Type Severity Reaction Status Date / Time No Known Allergies Allergy Unverified 10/01/20 16:10 Home Medications Medication Instructions Recorded Confirmed Last Taken Type Melatonin [Melatonin 5MG TAB] 5 mg PO QHS PRN #30 tablet 10/07/20 Unknown Rx Grace-3 Fatty Acids/Fish Oil [Fish 2,000 mg PO BID #120 capsule 10/07/20 Unknown Rx Oil] QUEtiapine [SEROquel] 200 mg PO BID #60 tablet 10/07/20 Unknown Rx Valproic Acid [Depakene] 500 mg PO BID #60 capsule 10/07/20 Unknown Rx traZODone [Desyrel] 50 mg PO QHS #30 tablet 10/07/20 Unknown Rx Active Meds: Active Medications Fish Oil (Grace-3 Fatty Acids/Fish Oil 1 Gram Cap) 2,000 mg PO BID [facility] Last Admin: 10/07/20 21:20 Dose: 2,000 mg Documented by: Lorazepam (Lorazepam 2 Mg/Ml Vial) 2 mg IM Q4H PRN PRN Reason: Agitation Last Admin: 10/03/20 10:12 Dose: 2 mg Documented by: Melatonin (Melatonin 5 Mg Tab) 5 mg PO QHS PRN PRN Reason: Sleep Quetiapine Fumarate (Quetiapine 100 Mg Tab) 200 mg PO QHS [facility] Last Admin: 10/07/20 21:20 Dose: 200 mg Documented by: Quetiapine Fumarate ([facility] 100 Mg Tab) [facility] [place] Last Admin: 10/07/20 09:35 Dose: 200 mg Documented by: Trazodone HCl (Trazodone 50 Mg Tab) 50 mg PO QHS [facility] Last Admin: 10/07/20 21:20 Dose: 50 mg Documented by: Valproic Acid (Valproic Acid 250 Mg Cap) 500 mg PO BID [facility] Last Admin: 10/07/20 21:20 Dose: 500 mg Documented by: Results - Results Labs/Vitals: Laboratory Last Values WBC 5.5 K/mm3 (4.5-11.0) 10/03/20 09:42 RBC 4.30 M/mm3 (3.65-5.03) 10/03/20 09:42 Hgb 13.2 gm/dl (11.8-15.2) 10/03/20 09:42 Hct 39.5 % (35.5-45.6) 10/03/20 09:42 MCV 92 fl (84-94) 10/03/20 09:42 MCH 31 pg (28-32) 10/03/20 09:42 MCHC 33 % (32-34) 10/03/20 09:42 RDW 12.5 % (13.2-15.2) L 10/03/20 09:42 Plt Count 166 K/mm3 (140-440) 10/03/20 09:42 Lymph % (Auto) Disaster Director 10/03/20 09:42 Add Manual Diff Complete 10/03/20 09:42 Total Counted 100 10/03/20 09:42 Seg Neutrophils % Disaster Director 10/03/20 09:42 Seg Neuts % (Manual) 32.0 % (40.0-70.0) L 10/03/20 09:42 Lymphocytes % (Manual) 49.0 % (13.4-35.0) H 10/03/20 09:42 Reactive Lymphs % (Man) 5.0 % 10/03/20 09:42 Monocytes % (Manual) 12.0 % (0.0-7.3) H 10/03/20 09:42 Eosinophils % (Manual) 2.0 % (0.0-4.3) 10/03/20 09:42 Nucleated RBC % Not Reportable 10/03/20 09:42 Seg Neutrophils # Man 1.8 K/mm3 (1.8-7.7) 10/03/20 09:42 Band Neutrophils # 0.0 K/mm3 10/03/20 09:42 Lymphocytes # (Manual) 2.7 K/mm3 (1.2-5.4) 10/03/20 09:42 Abs React Lymphs (Man) 0.3 K/mm3 10/03/20 09:42 Monocytes # (Manual) 0.7 K/mm3 (0.0-0.8) 10/03/20 09:42 Eosinophils # (Manual) 0.1 K/mm3 (0.0-0.4) 10/03/20 09:42 Basophils # (Manual) 0.0 K/mm3 (0.0-0.1) 10/03/20 09:42 Metamyelocytes # 0.0 K/mm3 10/03/20 09:42 Myelocytes # 0.0 K/mm3 10/03/20 09:42 Promyelocytes # 0.0 K/mm3 10/03/20 09:42 Blast Cells # 0.0 K/mm3 10/03/20 09:42 WBC Morphology Not Reportable 10/03/20 09:42 Hypersegmented Neuts Not Reportable 10/03/20 09:42 Hyposegmented Neuts Not Reportable 10/03/20 09:42 Hypogranular Neuts Not Reportable 10/03/20 09:42 Smudge Cells Not Reportable 10/03/20 09:42 Toxic Granulation Not Reportable 10/03/20 09:42 Toxic Vacuolation Not Reportable 10/03/20 09:42 Dohle Bodies Not Reportable 10/03/20 09:42 Pelger-Huet Anomaly Not Reportable 10/03/20 09:42 Soren Rods Not Reportable 10/03/20 09:42 Platelet Estimate Consistent w auto 10/03/20 09:42 Clumped Platelets Not Reportable 10/03/20 09:42 Plt Clumps, EDTA Not Reportable 10/03/20 09:42 Large Platelets Not Reportable 10/03/20 09:42 Giant Platelets Not Reportable 10/03/20 09:42 Platelet Satelliting Not Reportable 10/03/20 09:42 Plt Morphology Comment Not Reportable 10/03/20 09:42 RBC Morphology Normal 10/03/20 09:42 Dimorphic RBCs Not Reportable 10/03/20 09:42 Polychromasia Not Reportable 10/03/20 09:42 Hypochromasia Not Reportable 10/03/20 09:42 Poikilocytosis Not Reportable 10/03/20 09:42 Anisocytosis Not Reportable 10/03/20 09:42 Microcytosis Not Reportable 10/03/20 09:42 Macrocytosis Not Reportable 10/03/20 09:42 Spherocytes Not Reportable 10/03/20 09:42 Pappenheimer Bodies Not Reportable 10/03/20 09:42 Sickle Cells Not Reportable 10/03/20 09:42 Target Cells Not Reportable 10/03/20 09:42 Tear Drop Cells Not Reportable 10/03/20 09:42 Ovalocytes Not Reportable 10/03/20 09:42 Helmet Cells Not Reportable 10/03/20 09:42 English-[place]rie Bodies Not Reportable 10/03/20 09:42 [place] Rings Not Reportable 10/03/20 09:42 Shellie Cells Not Reportable 10/03/20 09:42 Bite Cells Not Reportable 10/03/20 09:42 Crenated Cell Not Reportable 10/03/20 09:42 Elliptocytes Not Reportable 10/03/20 09:42 Acanthocytes (Spur) Not Reportable 10/03/20 09:42 Rouleaux Not Reportable 10/03/20 09:42 Hemoglobin C Crystals Not Reportable 10/03/20 09:42 Schistocytes Not Reportable 10/03/20 09:42 Malaria parasites Not Reportable 10/03/20 09:42 Harish Bodies Not Reportable 10/03/20 09:42 Hem Pathologist Commnt No 10/03/20 09:42 Sodium 141 mmol/L (137-145) 10/03/20 09:42 Potassium 4.3 mmol/L (3.6-5.0) 10/03/20 09:42 Chloride 104.9 mmol/L (98-107) 10/03/20 09:42 Carbon Dioxide 25 mmol/L (22-30) 10/03/20 09:42 Anion Gap 15 mmol/L 10/03/20 09:42 BUN 11 mg/dL (9-20) 10/03/20 09:42 Creatinine 1.0 mg/dL (0.8-1.3) 10/03/20 09:42 Estimated GFR > 60 ml/min 10/03/20 09:42 BUN/Creatinine Ratio 11 % 10/03/20 09:42 Glucose 109 mg/dL (75-100) H 10/03/20 09:42 POC Glucose 93 mg/dL (70-105) 10/01/20 20:51 Hemoglobin A1c 4.5 % (4-6) 10/03/20 09:42 Calcium 9.2 mg/dL (8.4-10.2) 10/03/20 09:42 Total Bilirubin 1.00 mg/dL (0.1-1.2) 10/03/20 09:42 AST 22 units/L (5-40) 10/03/20 09:42 ALT 19 units/L (7-56) 10/03/20 09:42 Alkaline Phosphatase 47 units/L (35-129) 10/03/20 09:42 Total Protein 6.7 g/dL (6.3-8.2) 10/03/20 09:42 Albumin 4.3 g/dL (3.9-5) 10/03/20 09:42 Albumin/Globulin Ratio 1.8 % 10/03/20 09:42 Triglycerides 133 mg/dL (2-149) 10/03/20 09:42 Cholesterol 127 mg/dL (50-199) 10/03/20 09:42 LDL Cholesterol Direct 71 mg/dL (50-130) 10/03/20 09:42 HDL Cholesterol 49 mg/dL (40-59) 10/03/20 09:42 Cholesterol/HDL Ratio 2.59 % 10/03/20 09:42 TSH 1.710 mlU/mL (0.270-4.200) 10/03/20 09:42 Free T3 Index 3.0 pg/mL (2.3-4.2) 10/03/20 09:42 Last Vital Signs Temp 98.4 F 10/07/20 19:12 Pulse 87 10/07/20 19:12 Resp 17 10/07/20 19:12 BP 121/66 10/07/20 19:12 Pulse Ox 97 10/07/20 19:12
[2020-10-08] MEDS: QUEtiapine 100 MG TAB PO SCH ×2 (09:26→21:08)
[2020-10-08] MEDS: OMEGA-3 FATTY ACIDS/FISH OIL 1 GRAM CAP PO SCH ×2 (09:26→21:08)
[2020-10-08] MEDS: VALPROIC ACID 250 MG CAP PO SCH ×2 (09:26→21:08)
[2020-10-08] MEDS: traZODone 50 MG TAB PO SCH (21:09)
--- NOTE | 2020-10-09 08:33 | Progress Note ---
Subjective Date of service: 10/09/20 Principal diagnosis: (1) Acute schizophrenia Subjective Comment: Per Nurse Note: Pt received in the hallway walking. Denies pain, SI,or HI. No acute distress observed. Will continue to monitor. The patient was seen today. He is calm, and cooperative. He is walking around the unit but stops to speak with me. He asks "am I going home today?" I advised the patient that it should be Sunday. He replies "first thing Sunday?" He denies SI/HI or hallucinations of any kine. The patient states "I feel good" when asking how he feels. He says he slept okay. Spoke with the patient's brother concerning his progress. He says the patient does fairly well when on his meds. He says he normally does some pacing and talks to himself a little even when on the medications. The brother says the patient was on Invega Sustenna but he never goes to get the injection and also refuses it if the nurse comes out to give. He says he also refuses to take pills and ends up in the hospital about twice a year. He says this is a constant with Mr. Esparza. Reason for continuing inpatient treatment: The patient is at his baseline according to his brother. Will plan for a safe discharge once the social science professor secures placement to ensue safety. Review of Symptoms: Constitutional: Negative for weight loss ENT: Negative for stridor Respiratory: Negative for cough or hemoptysis All other systems reviewed and are negative MENTAL STATUS EXAMINATION General Appearance and Behavior: Age appropriate, good hygiene, not wearing appropriate clothes, good eye contact, cooperative polite with questioning. Cooperation: Participating/engaged Psychomotor Behavior: Psychomotor normal Mood: Good Affect and affective range: congruent with mood Thought Process:Circumstantial, Thought Content: flight off ideas Speech: normal rate and volume Intellectual Functioning: Average Suicidal Ideation: Denies SI Homicidal Ideation: Denies HI Impulse Control: Impaired Insight and Judgment: Limited insight and judgment Memory: Normal Attention: Divided attention impaired Orientation: Alert, oriented Assessment and Plan (1) Acute schizophrenia Current Visit: Yes Status: Acute F23 Treatment Plan Patient admitted for inpatient psychiatric evaluation, medication adjustment and close monitoring The patient's behavior, mood, sleep and appetite will be closely monitored. Patient enrolled in individual and group therapeutic sessions and encouraged to attend. Patient provided with a safe and structured environment. Patient's physical health needs will be addressed by the Hospitalist. Hospitalist Consulted Labs including CBC, CMP, Lipid profile and Hemoglobin A1C levels ordered for baseline reference Social Assessment will be completed and the Industrial Fabric Cutter will work with patient and family to ensure a suitable and safe disposition Medication adjustment will be made as clinically indicated Continue current medications No changes made today Usual Wellness Anabaptism/Preservation: - Start Trazodone 50 mg po QHS & 50 mg po QHS PRN between 10 PM & 2 AM for insomnia - Start Melatonin 5 mg po QHS to promote circadian rhythm - Start [place]-3 for brain health, reduce impulsivity, and as adjunctive treatment for mood disorder, continue upon discharge given overall benefits. - Start B1 prophylaxis with 200 mg po for 5 days The patient agreed on the treatment plan, understood the risk, benefit, alternative treatment, potential consequence of no treatment, and gave informed consent. Estimated days: 4 Post hospital care: primary care provider, psychiatric provider Medications and Allergies Allergies Allergy/AdvReac Type Severity Reaction Status Date / Time No Known Allergies Allergy Unverified 10/01/20 16:10 Home Medications Medication Instructions Recorded Confirmed Last Taken Type Melatonin [Melatonin 5MG TAB] 5 mg PO QHS PRN #30 tablet 10/07/20 Unknown Rx [place]-3 Fatty Acids/Fish Oil [Fish 2,000 mg PO BID #120 capsule 10/07/20 Unknown Rx Oil] QUEtiapine [SEROquel] 200 mg PO BID #60 tablet 10/07/20 Unknown Rx Valproic Acid [Depakene] 500 mg PO BID #60 capsule 10/07/20 Unknown Rx traZODone [Desyrel] 50 mg PO QHS #30 tablet 10/07/20 Unknown Rx Active Meds: Active Medications Fish Oil ([place]-3 Fatty Acids/Fish Oil 1 Gram Cap) 2,000 mg PO BID [facility] Last Admin: 10/08/20 21:08 Dose: 2,000 mg Documented by: Lorazepam (Lorazepam 2 Mg/Ml Vial) 2 mg IM Q4H PRN PRN Reason: Agitation Last Admin: 10/03/20 10:12 Dose: 2 mg Documented by: Melatonin (Melatonin 5 Mg Tab) 5 mg PO QHS PRN PRN Reason: Sleep Quetiapine Fumarate (Quetiapine 100 Mg Tab) 200 mg PO QHS ANA Last Admin: 10/08/20 21:08 Dose: 200 mg Documented by: Quetiapine Fumarate (Quetiapine 100 Mg Tab) 200 mg PO QAM [facility] Last Admin: 10/08/20 09:26 Dose: 200 mg Documented by: Trazodone HCl (Trazodone 50 Mg Tab) 50 mg PO QHS [facility] Last Admin: 10/08/20 21:09 Dose: 50 mg Documented by: Valproic Acid (Valproic Acid 250 Mg Cap) 500 mg PO BID [facility] Last Admin: 10/08/20 21:08 Dose: 500 mg Documented by: Results - Results Labs/Vitals: Laboratory Last Values WBC 5.5 K/mm3 (4.5-11.0) 10/03/20 09:42 RBC 4.30 M/mm3 (3.65-5.03) 10/03/20 09:42 Hgb 13.2 gm/dl (11.8-15.2) 10/03/20 09:42 Hct 39.5 % (35.5-45.6) 10/03/20 09:42 MCV 92 fl (84-94) 10/03/20 09:42 MCH 31 pg (28-32) 10/03/20 09:42 MCHC 33 % (32-34) 10/03/20 09:42 RDW 12.5 % (13.2-15.2) L 10/03/20 09:42 Plt Count 166 K/mm3 (140-440) 10/03/20 09:42 Lymph % (Auto) Torch Straightener 10/03/20 09:42 Add Manual Diff Complete 10/03/20 09:42 Total Counted 100 10/03/20 09:42 Seg Neutrophils % Torch Straightener 10/03/20 09:42 Seg Neuts % (Manual) 32.0 % (40.0-70.0) L 10/03/20 09:42 Lymphocytes % (Manual) 49.0 % (13.4-35.0) H 10/03/20 09:42 Reactive Lymphs % (Man) 5.0 % 10/03/20 09:42 Monocytes % (Manual) 12.0 % (0.0-7.3) H 10/03/20 09:42 Eosinophils % (Manual) 2.0 % (0.0-4.3) 10/03/20 09:42 Nucleated RBC % Not Reportable 10/03/20 09:42 Seg Neutrophils # Man 1.8 K/mm3 (1.8-7.7) 10/03/20 09:42 Band Neutrophils # 0.0 K/mm3 10/03/20 09:42 Lymphocytes # (Manual) 2.7 K/mm3 (1.2-5.4) 10/03/20 09:42 Abs React Lymphs (Man) 0.3 K/mm3 10/03/20 09:42 Monocytes # (Manual) 0.7 K/mm3 (0.0-0.8) 10/03/20 09:42 Eosinophils # (Manual) 0.1 K/mm3 (0.0-0.4) 10/03/20 09:42 Basophils # (Manual) 0.0 K/mm3 (0.0-0.1) 10/03/20 09:42 Metamyelocytes # 0.0 K/mm3 10/03/20 09:42 Myelocytes # 0.0 K/mm3 10/03/20 09:42 Promyelocytes # 0.0 K/mm3 10/03/20 09:42 Blast Cells # 0.0 K/mm3 10/03/20 09:42 WBC Morphology Not Reportable 10/03/20 09:42 Hypersegmented Neuts Not Reportable 10/03/20 09:42 Hyposegmented Neuts Not Reportable 10/03/20 09:42 Hypogranular Neuts Not Reportable 10/03/20 09:42 Smudge Cells Not Reportable 10/03/20 09:42 Toxic Granulation Not Reportable 10/03/20 09:42 Toxic Vacuolation Not Reportable 10/03/20 09:42 Dohle Bodies Not Reportable 10/03/20 09:42 Pelger-Huet Anomaly Not Reportable 10/03/20 09:42 Soren Rods Not Reportable 10/03/20 09:42 Platelet Estimate Consistent w auto 10/03/20 09:42 Clumped Platelets Not Reportable 10/03/20 09:42 Plt Clumps, EDTA Not Reportable 10/03/20 09:42 Large Platelets Not Reportable 10/03/20 09:42 Giant Platelets Not Reportable 10/03/20 09:42 Platelet Satelliting Not Reportable 10/03/20 09:42 Plt Morphology Comment Not Reportable 10/03/20 09:42 RBC Morphology Normal 10/03/20 09:42 Dimorphic RBCs Not Reportable 10/03/20 09:42 Polychromasia Not Reportable 10/03/20 09:42 Hypochromasia Not Reportable 10/03/20 09:42 Poikilocytosis Not Reportable 10/03/20 09:42 Anisocytosis Not Reportable 10/03/20 09:42 Microcytosis Not Reportable 10/03/20 09:42 Macrocytosis Not Reportable 10/03/20 09:42 Spherocytes Not Reportable 10/03/20 09:42 Pappenheimer Bodies Not Reportable 10/03/20 09:42 Sickle Cells Not Reportable 10/03/20 09:42 Target Cells Not Reportable 10/03/20 09:42 Tear Drop Cells Not Reportable 10/03/20 09:42 Ovalocytes Not Reportable 10/03/20 09:42 Helmet Cells Not Reportable 10/03/20 09:42 [place] Bodies Not Reportable 10/03/20 09:42 [place] Rings Not Reportable 10/03/20 09:42 Shellie Cells Not Reportable 10/03/20 09:42 Bite Cells Not Reportable 10/03/20 09:42 Crenated Cell Not Reportable 10/03/20 09:42 Elliptocytes Not Reportable 10/03/20 09:42 Acanthocytes (Spur) Not Reportable 10/03/20 09:42 Rouleaux Not Reportable 10/03/20 09:42 Hemoglobin C Crystals Not Reportable 10/03/20 09:42 Schistocytes Not Reportable 10/03/20 09:42 Malaria parasites Not Reportable 10/03/20 09:42 Harish Bodies Not Reportable 10/03/20 09:42 Hem Pathologist Commnt No 10/03/20 09:42 Sodium 141 mmol/L (137-145) 10/03/20 09:42 Potassium 4.3 mmol/L (3.6-5.0) 10/03/20 09:42 Chloride 104.9 mmol/L (98-107) 10/03/20 09:42 Carbon Dioxide 25 mmol/L (22-30) 10/03/20 09:42 Anion Gap 15 mmol/L 10/03/20 09:42 BUN 11 mg/dL (9-20) 10/03/20 09:42 Creatinine 1.0 mg/dL (0.8-1.3) 10/03/20 09:42 Estimated GFR > 60 ml/min 10/03/20 09:42 BUN/Creatinine Ratio 11 % 10/03/20 09:42 Glucose 109 mg/dL (75-100) H 10/03/20 09:42 POC Glucose 93 mg/dL (70-105) 10/01/20 20:51 Hemoglobin A1c 4.5 % (4-6) 10/03/20 09:42 Calcium 9.2 mg/dL (8.4-10.2) 10/03/20 09:42 Total Bilirubin 1.00 mg/dL (0.1-1.2) 10/03/20 09:42 AST 22 units/L (5-40) 10/03/20 09:42 ALT 19 units/L (7-56) 10/03/20 09:42 Alkaline Phosphatase 47 units/L (35-129) 10/03/20 09:42 Total Protein 6.7 g/dL (6.3-8.2) 10/03/20 09:42 Albumin 4.3 g/dL (3.9-5) 10/03/20 09:42 Albumin/Globulin Ratio 1.8 % 10/03/20 09:42 Triglycerides 133 mg/dL (2-149) 10/03/20 09:42 Cholesterol 127 mg/dL (50-199) 10/03/20 09:42 LDL Cholesterol Direct 71 mg/dL (50-130) 10/03/20 09:42 HDL Cholesterol 49 mg/dL (40-59) 10/03/20 09:42 Cholesterol/HDL Ratio 2.59 % 10/03/20 09:42 TSH 1.710 mlU/mL (0.270-4.200) 10/03/20 09:42 Free T3 Index 3.0 pg/mL (2.3-4.2) 10/03/20 09:42 Last Vital Signs Temp 98.7 F 10/08/20 19:31 Pulse 77 10/08/20 19:31 Resp 16 10/08/20 19:31 BP 106/59 10/08/20 19:31 Pulse Ox 95 10/08/20 19:31
[2020-10-09] MEDS: QUEtiapine 100 MG TAB PO SCH ×2 (09:34→21:43)
[2020-10-09] MEDS: VALPROIC ACID 250 MG CAP PO SCH ×2 (09:35→21:43)
[2020-10-09] MEDS: OMEGA-3 FATTY ACIDS/FISH OIL 1 GRAM CAP PO SCH ×2 (09:35→21:42)
[2020-10-09] MEDS: MELATONIN 5 MG TAB PO PRN (20:52)
[2020-10-09] MEDS: ACETAMINOPHEN 325 MG TAB PO PRN (21:41)
[2020-10-09] MEDS: traZODone 50 MG TAB PO SCH (21:43)
[2020-10-10] MEDS: ACETAMINOPHEN 325 MG TAB PO PRN (07:38)
--- NOTE | 2020-10-10 08:48 | Progress Note ---
Subjective Date of service: 10/10/20 Principal diagnosis: (1) Acute schizophrenia Subjective Comment: Per Nurse Note: Pt received in the hallway walking. Denies pain, SI,or HI. No acute distress observed. Will continue to monitor. The patient was seen today. He is walking around like usual. He is calm and cooperative. He denies SI/HI. He says he "wants to go home to see his dogs and cats." He's asking is he is going home first thing Sunday. Reason for continuing inpatient treatment: The patient is at his baseline according to his brother. He will likely not improve from a psych standpoint. Will plan for a safe discharge once the social secretary secures placement to ensue safety. Review of Symptoms: Constitutional: Negative for weight loss ENT: Negative for stridor Respiratory: Negative for cough or hemoptysis All other systems reviewed and are negative MENTAL STATUS EXAMINATION General Appearance and Behavior: Age appropriate, good hygiene, not wearing appropriate clothes, good eye contact, cooperative polite with questioning. Cooperation: Participating/engaged Psychomotor Behavior: Psychomotor normal Mood: Good Affect and affective range: congruent with mood Thought Process:Circumstantial, Thought Content: flight off ideas Speech: normal rate and volume Intellectual Functioning: Average Suicidal Ideation: Denies SI Homicidal Ideation: Denies HI Impulse Control: Impaired Insight and Judgment: Limited insight and judgment Memory: Normal Attention: Divided attention impaired Orientation: Alert, oriented Assessment and Plan (1) Acute schizophrenia Current Visit: Yes Status: Acute F23 Treatment Plan Patient admitted for inpatient psychiatric evaluation, medication adjustment and close monitoring The patient's behavior, mood, sleep and appetite will be closely monitored. Patient enrolled in individual and group therapeutic sessions and encouraged to attend. Patient provided with a safe and structured environment. Patient's physical health needs will be addressed by the Hospitalist. Hospitalist Consulted Labs including CBC, CMP, Lipid profile and Hemoglobin A1C levels ordered for baseline reference Social Assessment will be completed and the Pond Tender will work with patient and family to ensure a suitable and safe disposition Medication adjustment will be made as clinically indicated Continue current medications No changes made today Usual Wellness Holiness/Preservation: - Start Trazodone 50 mg po QHS & 50 mg po QHS PRN between 10 PM & 2 AM for insomnia - Start Melatonin 5 mg po QHS to promote circadian rhythm - Start [place]-3 for brain health, reduce impulsivity, and as adjunctive treatment for mood disorder, continue upon discharge given overall benefits. - Start B1 prophylaxis with 200 mg po for 5 days The patient agreed on the treatment plan, understood the risk, benefit, alternative treatment, potential consequence of no treatment, and gave informed consent. Estimated days: 1 Post hospital care: primary care provider, psychiatric provider Medications and Allergies Allergies Allergy/AdvReac Type Severity Reaction Status Date / Time No Known Allergies Allergy Unverified 10/01/20 16:10 Home Medications Medication Instructions Recorded Confirmed Last Taken Type Melatonin [Melatonin 5MG TAB] 5 mg PO QHS PRN #30 tablet 10/07/20 Unknown Rx [place]-3 Fatty Acids/Fish Oil [Fish 2,000 mg PO BID #120 capsule 10/07/20 Unknown Rx Oil] QUEtiapine [SEROquel] 200 mg PO BID #60 tablet 10/07/20 Unknown Rx Valproic Acid [Depakene] 500 mg PO BID #60 capsule 10/07/20 Unknown Rx traZODone [Desyrel] 50 mg PO QHS #30 tablet 10/07/20 Unknown Rx Active Meds: Active Medications Acetaminophen (Acetaminophen 325 Mg Tab) 650 mg PO Q6H PRN PRN Reason: Pain, Mild (1-3) Last Admin: 10/10/20 07:38 Dose: 650 mg Documented by: Fish Oil ([place]-3 Fatty Acids/Fish Oil 1 Gram Cap) 2,000 mg PO BID [facility] Last Admin: 10/09/20 21:42 Dose: 2,000 mg Documented by: Lorazepam (Lorazepam 2 Mg/Ml Vial) 2 mg IM Q4H PRN PRN Reason: Agitation Last Admin: 10/03/20 10:12 Dose: 2 mg Documented by: Melatonin (Melatonin 5 Mg Tab) 5 mg PO QHS PRN PRN Reason: Sleep Last Admin: 10/09/20 20:52 Dose: 5 mg Documented by: Quetiapine Fumarate (Quetiapine 100 Mg Tab) 200 mg PO QHS [facility] Last Admin: 10/09/20 21:43 Dose: 200 mg Documented by: Quetiapine [facility]umarate ([facility] 100 Mg Tab) [facility] [place] Last Admin: 10/09/20 09:34 Dose: 200 mg Documented by: Trazodone HCl (Trazodone 50 Mg Tab) 50 mg PO QHS [facility] Last Admin: 10/09/20 21:43 Dose: 50 mg Documented by: Valproic Acid (Valproic Acid 250 Mg Cap) 500 mg PO BID ANA Last Admin: 10/09/20 21:43 Dose: 500 mg Documented by: Results - Results Labs/Vitals: Laboratory Last Values WBC 5.5 K/mm3 (4.5-11.0) 10/03/20 09:42 RBC 4.30 M/mm3 (3.65-5.03) 10/03/20 09:42 Hgb 13.2 gm/dl (11.8-15.2) 10/03/20 09:42 Hct 39.5 % (35.5-45.6) 10/03/20 09:42 MCV 92 fl (84-94) 10/03/20 09:42 MCH 31 pg (28-32) 10/03/20 09:42 MCHC 33 % (32-34) 10/03/20 09:42 RDW 12.5 % (13.2-15.2) L 10/03/20 09:42 Plt Count 166 K/mm3 (140-440) 10/03/20 09:42 Lymph % (Auto) Accountant 10/03/20 09:42 Add Manual Diff Complete 10/03/20 09:42 Total Counted 100 10/03/20 09:42 Seg Neutrophils % Accountant 10/03/20 09:42 Seg Neuts % (Manual) 32.0 % (40.0-70.0) L 10/03/20 09:42 Lymphocytes % (Manual) 49.0 % (13.4-35.0) H 10/03/20 09:42 Reactive Lymphs % (Man) 5.0 % 10/03/20 09:42 Monocytes % (Manual) 12.0 % (0.0-7.3) H 10/03/20 09:42 Eosinophils % (Manual) 2.0 % (0.0-4.3) 10/03/20 09:42 Nucleated RBC % Not Reportable 10/03/20 09:42 Seg Neutrophils # Man 1.8 K/mm3 (1.8-7.7) 10/03/20 09:42 Band Neutrophils # 0.0 K/mm3 10/03/20 09:42 Lymphocytes # (Manual) 2.7 K/mm3 (1.2-5.4) 10/03/20 09:42 Abs React Lymphs (Man) 0.3 K/mm3 10/03/20 09:42 Monocytes # (Manual) 0.7 K/mm3 (0.0-0.8) 10/03/20 09:42 Eosinophils # (Manual) 0.1 K/mm3 (0.0-0.4) 10/03/20 09:42 Basophils # (Manual) 0.0 K/mm3 (0.0-0.1) 10/03/20 09:42 Metamyelocytes # 0.0 K/mm3 10/03/20 09:42 Myelocytes # 0.0 K/mm3 10/03/20 09:42 Promyelocytes # 0.0 K/mm3 10/03/20 09:42 Blast Cells # 0.0 K/mm3 10/03/20 09:42 WBC Morphology Not Reportable 10/03/20 09:42 Hypersegmented Neuts Not Reportable 10/03/20 09:42 Hyposegmented Neuts Not Reportable 10/03/20 09:42 Hypogranular Neuts Not Reportable 10/03/20 09:42 Smudge Cells Not Reportable 10/03/20 09:42 Toxic Granulation Not Reportable 10/03/20 09:42 Toxic Vacuolation Not Reportable 10/03/20 09:42 Dohle Bodies Not Reportable 10/03/20 09:42 Pelger-Huet Anomaly Not Reportable 10/03/20 09:42 Soren Rods Not Reportable 10/03/20 09:42 Platelet Estimate Consistent w auto 10/03/20 09:42 Clumped Platelets Not Reportable 10/03/20 09:42 Plt Clumps, EDTA Not Reportable 10/03/20 09:42 Large Platelets Not Reportable 10/03/20 09:42 Giant Platelets Not Reportable 10/03/20 09:42 Platelet Satelliting Not Reportable 10/03/20 09:42 Plt Morphology Comment Not Reportable 10/03/20 09:42 RBC Morphology Normal 10/03/20 09:42 Dimorphic RBCs Not Reportable 10/03/20 09:42 Polychromasia Not Reportable 10/03/20 09:42 Hypochromasia Not Reportable 10/03/20 09:42 Poikilocytosis Not Reportable 10/03/20 09:42 Anisocytosis Not Reportable 10/03/20 09:42 Microcytosis Not Reportable 10/03/20 09:42 Macrocytosis Not Reportable 10/03/20 09:42 Spherocytes Not Reportable 10/03/20 09:42 Pappenheimer Bodies Not Reportable 10/03/20 09:42 Sickle Cells Not Reportable 10/03/20 09:42 Target Cells Not Reportable 10/03/20 09:42 Tear Drop Cells Not Reportable 10/03/20 09:42 Ovalocytes Not Reportable 10/03/20 09:42 Helmet Cells Not Reportable 10/03/20 09:42 [place] Bodies Not Reportable 10/03/20 09:42 [place] Rings Not Reportable 10/03/20 09:42 Shellie Cells Not Reportable 10/03/20 09:42 Bite Cells Not Reportable 10/03/20 09:42 Crenated Cell Not Reportable 10/03/20 09:42 Elliptocytes Not Reportable 10/03/20 09:42 Acanthocytes (Spur) Not Reportable 10/03/20 09:42 Rouleaux Not Reportable 10/03/20 09:42 Hemoglobin C Crystals Not Reportable 10/03/20 09:42 Schistocytes Not Reportable 10/03/20 09:42 Malaria parasites Not Reportable 10/03/20 09:42 Harish Bodies Not Reportable 10/03/20 09:42 Hem Pathologist Commnt No 10/03/20 09:42 Sodium 141 mmol/L (137-145) 10/03/20 09:42 Potassium 4.3 mmol/L (3.6-5.0) 10/03/20 09:42 Chloride 104.9 mmol/L (98-107) 10/03/20 09:42 Carbon Dioxide 25 mmol/L (22-30) 10/03/20 09:42 Anion Gap 15 mmol/L 10/03/20 09:42 BUN 11 mg/dL (9-20) 10/03/20 09:42 Creatinine 1.0 mg/dL (0.8-1.3) 10/03/20 09:42 Estimated GFR > 60 ml/min 10/03/20 09:42 BUN/Creatinine Ratio 11 % 10/03/20 09:42 Glucose 109 mg/dL (75-100) H 10/03/20 09:42 POC Glucose 93 mg/dL (70-105) 10/01/20 20:51 Hemoglobin A1c 4.5 % (4-6) 10/03/20 09:42 Calcium 9.2 mg/dL (8.4-10.2) 10/03/20 09:42 Total Bilirubin 1.00 mg/dL (0.1-1.2) 10/03/20 09:42 AST 22 units/L (5-40) 10/03/20 09:42 ALT 19 units/L (7-56) 10/03/20 09:42 Alkaline Phosphatase 47 units/L (35-129) 10/03/20 09:42 Total Protein 6.7 g/dL (6.3-8.2) 10/03/20 09:42 Albumin 4.3 g/dL (3.9-5) 10/03/20 09:42 Albumin/Globulin Ratio 1.8 % 10/03/20 09:42 Triglycerides 133 mg/dL (2-149) 10/03/20 09:42 Cholesterol 127 mg/dL (50-199) 10/03/20 09:42 LDL Cholesterol Direct 71 mg/dL (50-130) 10/03/20 09:42 HDL Cholesterol 49 mg/dL (40-59) 10/03/20 09:42 Cholesterol/HDL Ratio 2.59 % 10/03/20 09:42 TSH 1.710 mlU/mL (0.270-4.200) 10/03/20 09:42 Free T3 Index 3.0 pg/mL (2.3-4.2) 10/03/20 09:42 Last Vital Signs Temp 98.5 F 10/09/20 23:49 Pulse 75 10/09/20 23:49 Resp 17 10/09/20 23:49 BP 115/65 10/09/20 23:49 Pulse Ox 98 10/09/20 23:49
[2020-10-10] MEDS: OMEGA-3 FATTY ACIDS/FISH OIL 1 GRAM CAP PO SCH ×2 (09:50→21:03)
[2020-10-10] MEDS: VALPROIC ACID 250 MG CAP PO SCH ×2 (09:50→21:03)
[2020-10-10] MEDS: QUEtiapine 100 MG TAB PO SCH ×2 (09:50→21:03)
[2020-10-10] MEDS: MELATONIN 5 MG TAB PO PRN (21:03)
[2020-10-10] MEDS: traZODone 50 MG TAB PO SCH (21:03)
--- NOTE | 2020-10-11 08:48 | Discharge Summary ---
Providers - Providers Date of Admission: 10/01/20 20:40 Date of discharge: 10/11/20 Attending physician: JERRY MONTGOMERY MD 10/01/20 16:15 Consult to Physician [CONS] Routine Comment: Consulting Provider: KAYLYN SANCHEZ Physician Instructions: Reason For Exam: History and physical and Medical management Primary care physician: SOFTWARE QUALITY ASSURANCE SPECIALIST Hospitalization Reason for admission: physchosis Admitting Diagnosis: F20.9 - SCHIZOPHRENIA, UNSPECIFIED Hospital course: The patient was provided inpatient psychiatric treatment with safe and supportive care, medication adjustment, adverse effect monitoring, medical evaluations, medical treatments, assessment and psycho-education. The patient's mood, cognition, behavior, moral support are improved and stabilized. St the time of discharge, the patient had no endangering behavior and no debilitating adverse effects. The patient agreed on potential consequences of no treatment and gave informed consent. Disposition: DC- TO HOME OR SELFCARE Time spent for discharge: 40 Allergies/Adverse Reactions: Allergies No Known Allergies Allergy (Unverified 10/01/20 16:10) Vital Signs: Last Vital Signs Temp 98.3 F 10/11/20 06:52 Pulse 73 10/11/20 06:52 Resp 20 10/11/20 06:52 BP 112/71 10/11/20 06:52 Pulse Ox 97 10/11/20 06:52 Last Lab: Laboratory Last Values WBC 5.5 K/mm3 (4.5-11.0) 10/03/20 09:42 RBC 4.30 M/mm3 (3.65-5.03) 10/03/20 09:42 Hgb 13.2 gm/dl (11.8-15.2) 10/03/20 09:42 Hct 39.5 % (35.5-45.6) 10/03/20 09:42 MCV 92 fl (84-94) 10/03/20 09:42 MCH 31 pg (28-32) 10/03/20 09:42 MCHC 33 % (32-34) 10/03/20 09:42 RDW 12.5 % (13.2-15.2) L 10/03/20 09:42 Plt Count 166 K/mm3 (140-440) 10/03/20 09:42 Lymph % (Auto) Biostatistics Teacher 10/03/20 09:42 Add Manual Diff Complete 10/03/20 09:42 Total Counted 100 10/03/20 09:42 Seg Neutrophils % Biostatistics Teacher 10/03/20 09:42 Seg Neuts % (Manual) 32.0 % (40.0-70.0) L 10/03/20 09:42 Lymphocytes % (Manual) 49.0 % (13.4-35.0) H 10/03/20 09:42 Reactive Lymphs % (Man) 5.0 % 10/03/20 09:42 Monocytes % (Manual) 12.0 % (0.0-7.3) H 10/03/20 09:42 Eosinophils % (Manual) 2.0 % (0.0-4.3) 10/03/20 09:42 Nucleated RBC % Not Reportable 10/03/20 09:42 Seg Neutrophils # Man 1.8 K/mm3 (1.8-7.7) 10/03/20 09:42 Band Neutrophils # 0.0 K/mm3 10/03/20 09:42 Lymphocytes # (Manual) 2.7 K/mm3 (1.2-5.4) 10/03/20 09:42 Abs React Lymphs (Man) 0.3 K/mm3 10/03/20 09:42 Monocytes # (Manual) 0.7 K/mm3 (0.0-0.8) 10/03/20 09:42 Eosinophils # (Manual) 0.1 K/mm3 (0.0-0.4) 10/03/20 09:42 Basophils # (Manual) 0.0 K/mm3 (0.0-0.1) 10/03/20 09:42 Metamyelocytes # 0.0 K/mm3 10/03/20 09:42 Myelocytes # 0.0 K/mm3 10/03/20 09:42 Promyelocytes # 0.0 K/mm3 10/03/20 09:42 Blast Cells # 0.0 K/mm3 10/03/20 09:42 WBC Morphology Not Reportable 10/03/20 09:42 Hypersegmented Neuts Not Reportable 10/03/20 09:42 Hyposegmented Neuts Not Reportable 10/03/20 09:42 Hypogranular Neuts Not Reportable 10/03/20 09:42 Smudge Cells Not Reportable 10/03/20 09:42 Toxic Granulation Not Reportable 10/03/20 09:42 Toxic Vacuolation Not Reportable 10/03/20 09:42 Dohle Bodies Not Reportable 10/03/20 09:42 Pelger-Huet Anomaly Not Reportable 10/03/20 09:42 Soren Rods Not Reportable 10/03/20 09:42 Platelet Estimate Consistent w auto 10/03/20 09:42 Clumped Platelets Not Reportable 10/03/20 09:42 Plt Clumps, EDTA Not Reportable 10/03/20 09:42 Large Platelets Not Reportable 10/03/20 09:42 Giant Platelets Not Reportable 10/03/20 09:42 Platelet Satelliting Not Reportable 10/03/20 09:42 Plt Morphology Comment Not Reportable 10/03/20 09:42 RBC Morphology Normal 10/03/20 09:42 Dimorphic RBCs Not Reportable 10/03/20 09:42 Polychromasia Not Reportable 10/03/20 09:42 Hypochromasia Not Reportable 10/03/20 09:42 Poikilocytosis Not Reportable 10/03/20 09:42 Anisocytosis Not Reportable 10/03/20 09:42 Microcytosis Not Reportable 10/03/20 09:42 Macrocytosis Not Reportable 10/03/20 09:42 Spherocytes Not Reportable 10/03/20 09:42 Pappenheimer Bodies Not Reportable 10/03/20 09:42 Sickle Cells Not Reportable 10/03/20 09:42 Target Cells Not Reportable 10/03/20 09:42 Tear Drop Cells Not Reportable 10/03/20 09:42 Ovalocytes Not Reportable 10/03/20 09:42 Helmet Cells Not Reportable 10/03/20 09:42 [place] Bodies Not Reportable 10/03/20 09:42 [place] Rings Not Reportable 10/03/20 09:42 [place] Cells Not Reportable 10/03/20 09:42 Bite Cells Not Reportable 10/03/20 09:42 Crenated Cell Not Reportable 10/03/20 09:42 Elliptocytes Not Reportable 10/03/20 09:42 Acanthocytes (Spur) Not Reportable 10/03/20 09:42 Rouleaux Not Reportable 10/03/20 09:42 Hemoglobin C Crystals Not Reportable 10/03/20 09:42 Schistocytes Not Reportable 10/03/20 09:42 Malaria parasites Not Reportable 10/03/20 09:42 Harish Bodies Not Reportable 10/03/20 09:42 Hem Pathologist Commnt No 10/03/20 09:42 Sodium 141 mmol/L (137-145) 10/03/20 09:42 Potassium 4.3 mmol/L (3.6-5.0) 10/03/20 09:42 Chloride 104.9 mmol/L (98-107) 10/03/20 09:42 Carbon Dioxide 25 mmol/L (22-30) 10/03/20 09:42 Anion Gap 15 mmol/L 10/03/20 09:42 BUN 11 mg/dL (9-20) 10/03/20 09:42 Creatinine 1.0 mg/dL (0.8-1.3) 10/03/20 09:42 Estimated GFR > 60 ml/min 10/03/20 09:42 BUN/Creatinine Ratio 11 % 10/03/20 09:42 Glucose 109 mg/dL (75-100) H 10/03/20 09:42 POC Glucose 93 mg/dL (70-105) 10/01/20 20:51 Hemoglobin A1c 4.5 % (4-6) 10/03/20 09:42 Calcium 9.2 mg/dL (8.4-10.2) 10/03/20 09:42 Total Bilirubin 1.00 mg/dL (0.1-1.2) 10/03/20 09:42 AST 22 units/L (5-40) 10/03/20 09:42 ALT 19 units/L (7-56) 10/03/20 09:42 Alkaline Phosphatase 47 units/L (35-129) 10/03/20 09:42 Total Protein 6.7 g/dL (6.3-8.2) 10/03/20 09:42 Albumin 4.3 g/dL (3.9-5) 10/03/20 09:42 Albumin/Globulin Ratio 1.8 % 10/03/20 09:42 Triglycerides 133 mg/dL (2-149) 10/03/20 09:42 Cholesterol 127 mg/dL (50-199) 10/03/20 09:42 LDL Cholesterol Direct 71 mg/dL (50-130) 10/03/20 09:42 HDL Cholesterol 49 mg/dL (40-59) 10/03/20 09:42 Cholesterol/HDL Ratio 2.59 % 10/03/20 09:42 TSH 1.710 mlU/mL (0.270-4.200) 10/03/20 09:42 Free T3 Index 3.0 pg/mL (2.3-4.2) 10/03/20 09:42 Valproic Acid 74.6 ug/mL (50-100) 10/10/20 14:12 Core Measure Documentation - Palliative Care Palliative Care/ Comfort Measures: Not Applicable - Core Measures Any of the following diagnoses?: none Exam - Constitutional Vitals: Temp Pulse Resp BP Pulse Ox 98.3 F 73 20 112/71 97 10/11/20 06:52 10/11/20 06:52 10/11/20 06:52 10/11/20 06:52 10/11/20 06:52 General appearance: Present: no acute distress - EENT Eyes: Present: PERRL, EOM intact ENT: hearing intact, clear oral mucosa - Neck Neck: Present: supple, normal ROM - Respiratory Respiratory effort: normal Plan Activity: advance as tolerated Weight Bearing Status: Weight Bear as Tolerated Care Plan Goals: Maintain good and stable mental health Plan of Treatment: The patient should be compliant with medications, not to use drugs, and not to drink alcohol. The patient understands that if suicidal ideas, homicidal ideas or any endangering feeling arise, the patient should seek assistance including, but not limited to crisis hotline, and emergency room. Assessment: Schizophrenia Follow up with: PRIMARY CARE, [Primary Care Provider] - 7 Days Prescriptions: traZODone [Desyrel] 50 mg PO QHS #30 tablet Melatonin [Melatonin 5MG TAB] 5 mg PO QHS PRN #30 tablet PRN Reason: Sleep Valproic Acid [Depakene] 500 mg PO BID #60 capsule [place]-3 Fatty Acids/Fish Oil [Fish Oil] 2,000 mg PO BID #120 capsule QUEtiapine [SEROquel] 200 mg PO BID #60 tablet
[2020-10-11] MEDS: VALPROIC ACID 250 MG CAP PO SCH ×2 (09:46→21:56)
[2020-10-11] MEDS: QUEtiapine 100 MG TAB PO SCH ×2 (09:47→21:57)
[2020-10-11] MEDS: OMEGA-3 FATTY ACIDS/FISH OIL 1 GRAM CAP PO SCH ×2 (09:47→21:56)
[2020-10-11] MEDS: traZODone 50 MG TAB PO SCH (21:57)
--- NOTE | 2020-10-12 08:21 | Progress Note ---
Subjective Date of service: 10/11/20 Principal diagnosis: (1) Acute schizophrenia Subjective Comment: The patient was seen today. He is walking around like usual. He is calm and cooperative. He denies SI/HI. He was scheduled to go home today but the could not secure safe placement for him. Reason for continuing inpatient treatment: The patient is at his baseline according to his brother. He will likely not improve from a psych standpoint. He is clear from psych. Review of Symptoms: Constitutional: Negative for weight loss ENT: Negative for stridor Respiratory: Negative for cough or hemoptysis All other systems reviewed and are negative MENTAL STATUS EXAMINATION General Appearance and Behavior: Age appropriate, good hygiene, not wearing appropriate clothes, good eye contact, cooperative polite with questioning. Cooperation: Participating/engaged Psychomotor Behavior: Psychomotor normal Mood: Good Affect and affective range: congruent with mood Thought Process:Circumstantial, Thought Content: flight off ideas Speech: normal rate and volume Intellectual Functioning: Average Suicidal Ideation: Denies SI Homicidal Ideation: Denies HI Impulse Control: Impaired Insight and Judgment: Limited insight and judgment Memory: Normal Attention: Divided attention impaired Orientation: Alert, oriented Assessment and Plan (1) Acute schizophrenia Current Visit: Yes Status: Acute F23 Treatment Plan Patient admitted for inpatient psychiatric evaluation, medication adjustment and close monitoring The patient's behavior, mood, sleep and appetite will be closely monitored. Patient enrolled in individual and group therapeutic sessions and encouraged to attend. Patient provided with a safe and structured environment. Patient's physical health needs will be addressed by the Hospitalist. Hospitalist Consulted Labs including CBC, CMP, Lipid profile and Hemoglobin A1C levels ordered for baseline reference Social Assessment will be completed and the Horse Racing Manager will work with patient and family to ensure a suitable and safe disposition Medication adjustment will be made as clinically indicated Continue current medications No changes made today Usual Wellness Scientologist/Preservation: - Start Trazodone 50 mg po QHS & 50 mg po QHS PRN between 10 PM & 2 AM for insomnia - Start Melatonin 5 mg po QHS to promote circadian rhythm - Start [place]-3 for brain health, reduce impulsivity, and as adjunctive treatment for mood disorder, continue upon discharge given overall benefits. - Start B1 prophylaxis with 200 mg po for 5 days The patient agreed on the treatment plan, understood the risk, benefit, alternative treatment, potential consequence of no treatment, and gave informed consent. Estimated days: 1 Post hospital care: primary care provider, psychiatric provider Medications and Allergies Allergies Allergy/AdvReac Type Severity Reaction Status Date / Time No Known Allergies Allergy Unverified 10/01/20 16:10 Home Medications Medication Instructions Recorded Confirmed Last Taken Type Melatonin [Melatonin 5MG TAB] 5 mg PO QHS PRN #30 tablet 10/07/20 Unknown Rx [place]-3 Fatty Acids/Fish Oil [Fish 2,000 mg PO BID #120 capsule 10/07/20 U nknown Rx Oil] QUEtiapine [SEROquel] 200 mg PO BID #60 tablet 10/07/20 Unknown Rx traZODone [Desyrel] 50 mg PO QHS #30 tablet 10/07/20 Unknown Rx Valproic Acid [DepaKENE] 500 mg PO BID #120 capsule 10/11/20 Unknown Rx Active Meds: Active Medications Acetaminophen (Acetaminophen 325 Mg Tab) 650 mg PO Q6H PRN PRN Reason: Pain, Mild (1-3) Last Admin: 10/10/20 07:38 Dose: 650 mg Documented by: Fish Oil ([place]-3 Fatty Acids/Fish Oil 1 Gram Cap) 2,000 mg PO BID [facility] Last Admin: 10/11/20 21:56 Dose: 2,000 mg Documented by: Lorazepam (Lorazepam 2 Mg/Ml Vial) 2 mg IM Q4H PRN PRN Reason: Agitation Last Admin: 10/03/20 10:12 Dose: 2 mg Documented by: Melatonin (Melatonin 5 Mg Tab) 5 mg PO QHS PRN PRN Reason: Sleep Last Admin: 10/10/20 21:03 Dose: 5 mg Documented by: Quetiapine Fumarate (Quetiapine 100 Mg Tab) 200 mg PO QHS [facility] Last Admin: 10/11/20 21:57 Dose: 200 mg Documented by: Quetiapine Fumarate ([facility]apine 100 Mg Tab) [facility] Last Admin: 10/11/20 09:47 Dose: 200 mg Documented by: Trazodone HCl (Trazodone 50 Mg Tab) 50 mg PO QHS [facility] Last Admin: 10/11/20 21:57 Dose: 50 mg Documented by: Valproic Acid (Valproic Acid 250 Mg Cap) 500 mg PO BID [facility] Last Admin: 10/11/20 21:56 Dose: 500 mg Documented by: Results - Results Labs/Vitals: Laboratory Last Values WBC 5.5 K/mm3 (4.5-11.0) 10/03/20 09:42 RBC 4.30 M/mm3 (3.65-5.03) 10/03/20 09:42 Hgb 13.2 gm/dl (11.8-15.2) 10/03/20 09:42 Hct 39.5 % (35.5-45.6) 10/03/20 09:42 MCV 92 fl (84-94) 10/03/20 09:42 MCH 31 pg (28-32) 10/03/20 09:42 MCHC 33 % (32-34) 10/03/20 09:42 RDW 12.5 % (13.2-15.2) L 10/03/20 09:42 Plt Count 166 K/mm3 (140-440) 10/03/20 09:42 Lymph % (Auto) Drift Miner 10/03/20 09:42 Add Manual Diff Complete 10/03/20 09:42 Total Counted 100 10/03/20 09:42 Seg Neutrophils % Drift Miner 10/03/20 09:42 Seg Neuts % (Manual) 32.0 % (40.0-70.0) L 10/03/20 09:42 Lymphocytes % (Manual) 49.0 % (13.4-35.0) H 10/03/20 09:42 Reactive Lymphs % (Man) 5.0 % 10/03/20 09:42 Monocytes % (Manual) 12.0 % (0.0-7.3) H 10/03/20 09:42 Eosinophils % (Manual) 2.0 % (0.0-4.3) 10/03/20 09:42 Nucleated RBC % Not Reportable 10/03/20 09:42 Seg Neutrophils # Man 1.8 K/mm3 (1.8-7.7) 10/03/20 09:42 Band Neutrophils # 0.0 K/mm3 10/03/20 09:42 Lymphocytes # (Manual) 2.7 K/mm3 (1.2-5.4) 10/03/20 09:42 Abs React Lymphs (Man) 0.3 K/mm3 10/03/20 09:42 Monocytes # (Manual) 0.7 K/mm3 (0.0-0.8) 10/03/20 09:42 Eosinophils # (Manual) 0.1 K/mm3 (0.0-0.4) 10/03/20 09:42 Basophils # (Manual) 0.0 K/mm3 (0.0-0.1) 10/03/20 09:42 Metamyelocytes # 0.0 K/mm3 10/03/20 09:42 Myelocytes # 0.0 K/mm3 10/03/20 09:42 Promyelocytes # 0.0 K/mm3 10/03/20 09:42 Blast Cells # 0.0 K/mm3 10/03/20 09:42 WBC Morphology Not Reportable 10/03/20 09:42 Hypersegmented Neuts Not Reportable 10/03/20 09:42 Hyposegmented Neuts Not Reportable 10/03/20 09:42 Hypogranular Neuts Not Reportable 10/03/20 09:42 Smudge Cells Not Reportable 10/03/20 09:42 Toxic Granulation Not Reportable 10/03/20 09:42 Toxic Vacuolation Not Reportable 10/03/20 09:42 Dohle Bodies Not Reportable 10/03/20 09:42 Pelger-Huet Anomaly Not Reportable 10/03/20 09:42 Soren Rods Not Reportable 10/03/20 09:42 Platelet Estimate Consistent w auto 10/03/20 09:42 Clumped Platelets Not Reportable 10/03/20 09:42 Plt Clumps, EDTA Not Reportable 10/03/20 09:42 Large Platelets Not Reportable 10/03/20 09:42 Giant Platelets Not Reportable 10/03/20 09:42 Platelet Satelliting Not Reportable 10/03/20 09:42 Plt Morphology Comment Not Reportable 10/03/20 09:42 RBC Morphology Normal 10/03/20 09:42 Dimorphic RBCs Not Reportable 10/03/20 09:42 Polychromasia Not Reportable 10/03/20 09:42 Hypochromasia Not Reportable 10/03/20 09:42 Poikilocytosis Not Reportable 10/03/20 09:42 Anisocytosis Not Reportable 10/03/20 09:42 Microcytosis Not Reportable 10/03/20 09:42 Macrocytosis Not Reportable 10/03/20 09:42 Spherocytes Not Reportable 10/03/20 09:42 Pappenheimer Bodies Not Reportable 10/03/20 09:42 Sickle Cells Not Reportable 10/03/20 09:42 Target Cells Not Reportable 10/03/20 09:42 Tear Drop Cells Not Reportable 10/03/20 09:42 Ovalocytes Not Reportable 10/03/20 09:42 Helmet Cells Not Reportable 10/03/20 09:42 [place] Bodies Not Reportable 10/03/20 09:42 [place] Rings Not Reportable 10/03/20 09:42 [place] Cells Not Reportable 10/03/20 09:42 Bite Cells Not Reportable 10/03/20 09:42 Crenated Cell Not Reportable 10/03/20 09:42 Elliptocytes Not Reportable 10/03/20 09:42 Acanthocytes (Spur) Not Reportable 10/03/20 09:42 Rouleaux Not Reportable 10/03/20 09:42 Hemoglobin C Crystals Not Reportable 10/03/20 09:42 Schistocytes Not Reportable 10/03/20 09:42 Malaria parasites Not Reportable 10/03/20 09:42 Harish Bodies Not Reportable 10/03/20 09:42 Hem Pathologist Commnt No 10/03/20 09:42 Sodium 141 mmol/L (137-145) 10/03/20 09:42 Potassium 4.3 mmol/L (3.6-5.0) 10/03/20 09:42 Chloride 104.9 mmol/L (98-107) 10/03/20 09:42 Carbon Dioxide 25 mmol/L (22-30) 10/03/20 09:42 Anion Gap 15 mmol/L 10/03/20 09:42 BUN 11 mg/dL (9-20) 10/03/20 09:42 Creatinine 1.0 mg/dL (0.8-1.3) 10/03/20 09:42 Estimated GFR > 60 ml/min 10/03/20 09:42 BUN/Creatinine Ratio 11 % 10/03/20 09:42 Glucose 109 mg/dL (75-100) H 10/03/20 09:42 POC Glucose 93 mg/dL (70-105) 10/01/20 20:51 Hemoglobin A1c 4.5 % (4-6) 10/03/20 09:42 Calcium 9.2 mg/dL (8.4-10.2) 10/03/20 09:42 Total Bilirubin 1.00 mg/dL (0.1-1.2) 10/03/20 09:42 AST 22 units/L (5-40) 10/03/20 09:42 ALT 19 units/L (7-56) 10/03/20 09:42 Alkaline Phosphatase 47 units/L (35-129) 10/03/20 09:42 Total Protein 6.7 g/dL (6.3-8.2) 10/03/20 09:42 Albumin 4.3 g/dL (3.9-5) 10/03/20 09:42 Albumin/Globulin Ratio 1.8 % 10/03/20 09:42 Triglycerides 133 mg/dL (2-149) 10/03/20 09:42 Cholesterol 127 mg/dL (50-199) 10/03/20 09:42 LDL Cholesterol Direct 71 mg/dL (50-130) 10/03/20 09:42 HDL Cholesterol 49 mg/dL (40-59) 10/03/20 09:42 Cholesterol/HDL Ratio 2.59 % 10/03/20 09:42 TSH 1.710 mlU/mL (0.270-4.200) 10/03/20 09:42 Free T3 Index 3.0 pg/mL (2.3-4.2) 10/03/20 09:42 Valproic Acid 74.6 ug/mL (50-100) 10/10/20 14:12 Last Vital Signs Temp 97.6 F 10/11/20 19:22 Pulse 86 10/11/20 19:22 Resp 16 10/11/20 19:22 BP 121/70 10/11/20 19:22 Pulse Ox 95 10/11/20 19:22
--- NOTE | 2020-10-12 08:26 | Discharge Summary ---
Providers - Providers Date of Admission: 10/01/20 20:40 Date of discharge: 10/12/20 Attending physician: JERRY MONTGOMERY MD 10/01/20 16:15 Consult to Physician [CONS] Routine Comment: Consulting Provider: ANN-MARIE GATES Physician Instructions: Reason For Exam: History and physical and Medical management Primary care physician: MAINTENANCE AND OPERATIONS SUPERVISOR Hospitalization Reason for admission: psychosis Admitting Diagnosis: F20.9 - SCHIZOPHRENIA, UNSPECIFIED Condition: Stable Hospital course: The patient was provided inpatient psychiatric treatment with safe and supportive care, medication adjustment, adverse effect monitoring, medical evaluations, medical treatments, assessment and psycho-education. The patient's mood, cognition, behavior, moral support are improved and stabilized. St the time of discharge, the patient had no endangering behavior and no debilitating adverse effects. The patient agreed on potential consequences of no treatment and gave informed consent. Disposition: DC-01 TO HOME OR SELFCARE Time spent for discharge: 38 Allergies/Adverse Reactions: Allergies No Known Allergies Allergy (Unverified 10/01/20 16:10) Vital Signs: Last Vital Signs Temp 97.6 F 10/11/20 19:22 Pulse 86 10/11/20 19:22 Resp 16 10/11/20 19:22 BP 121/70 10/11/20 19:22 Pulse Ox 95 10/11/20 19:22 Last Lab: Laboratory Last Values WBC 5.5 K/mm3 (4.5-11.0) 10/03/20 09:42 RBC 4.30 M/mm3 (3.65-5.03) 10/03/20 09:42 Hgb 13.2 gm/dl (11.8-15.2) 10/03/20 09:42 Hct 39.5 % (35.5-45.6) 10/03/20 09:42 MCV 92 fl (84-94) 10/03/20 09:42 MCH 31 pg (28-32) 10/03/20 09:42 MCHC 33 % (32-34) 10/03/20 09:42 RDW 12.5 % (13.2-15.2) L 10/03/20 09:42 Plt Count 166 K/mm3 (140-440) 10/03/20 09:42 Lymph % (Auto) Alarm Field Technician 10/03/20 09:42 Add Manual Diff Complete 10/03/20 09:42 Total Counted 100 10/03/20 09:42 Seg Neutrophils % Alarm Field Technician 10/03/20 09:42 Seg Neuts % (Manual) 32.0 % (40.0-70.0) L 10/03/20 09:42 Lymphocytes % (Manual) 49.0 % (13.4-35.0) H 10/03/20 09:42 Reactive Lymphs % (Man) 5.0 % 10/03/20 09:42 Monocytes % (Manual) 12.0 % (0.0-7.3) H 10/03/20 09:42 Eosinophils % (Manual) 2.0 % (0.0-4.3) 10/03/20 09:42 Nucleated RBC % Not Reportable 10/03/20 09:42 Seg Neutrophils # Man 1.8 K/mm3 (1.8-7.7) 10/03/20 09:42 Band Neutrophils # 0.0 K/mm3 10/03/20 09:42 Lymphocytes # (Manual) 2.7 K/mm3 (1.2-5.4) 10/03/20 09:42 Abs React Lymphs (Man) 0.3 K/mm3 10/03/20 09:42 Monocytes # (Manual) 0.7 K/mm3 (0.0-0.8) 10/03/20 09:42 Eosinophils # (Manual) 0.1 K/mm3 (0.0-0.4) 10/03/20 09:42 Basophils # (Manual) 0.0 K/mm3 (0.0-0.1) 10/03/20 09:42 Metamyelocytes # 0.0 K/mm3 10/03/20 09:42 Myelocytes # 0.0 K/mm3 10/03/20 09:42 Promyelocytes # 0.0 K/mm3 10/03/20 09:42 Blast Cells # 0.0 K/mm3 10/03/20 09:42 WBC Morphology Not Reportable 10/03/20 09:42 Hypersegmented Neuts Not Reportable 10/03/20 09:42 Hyposegmented Neuts Not Reportable 10/03/20 09:42 Hypogranular Neuts Not Reportable 10/03/20 09:42 Smudge Cells Not Reportable 10/03/20 09:42 Toxic Granulation Not Reportable 10/03/20 09:42 Toxic Vacuolation Not Reportable 10/03/20 09:42 Dohle Bodies Not Reportable 10/03/20 09:42 Pelger-Huet Anomaly Not Reportable 10/03/20 09:42 Soren Rods Not Reportable 10/03/20 09:42 Platelet Estimate Consistent w auto 10/03/20 09:42 Clumped Platelets Not Reportable 10/03/20 09:42 Plt Clumps, EDTA Not Reportable 10/03/20 09:42 Large Platelets Not Reportable 10/03/20 09:42 Giant Platelets Not Reportable 10/03/20 09:42 Platelet Satelliting Not Reportable 10/03/20 09:42 Plt Morphology Comment Not Reportable 10/03/20 09:42 RBC Morphology Normal 10/03/20 09:42 Dimorphic RBCs Not Reportable 10/03/20 09:42 Polychromasia Not Reportable 10/03/20 09:42 Hypochromasia Not Reportable 10/03/20 09:42 Poikilocytosis Not Reportable 10/03/20 09:42 Anisocytosis Not Reportable 10/03/20 09:42 Microcytosis Not Reportable 10/03/20 09:42 Macrocytosis Not Reportable 10/03/20 09:42 Spherocytes Not Reportable 10/03/20 09:42 Pappenheimer Bodies Not Reportable 10/03/20 09:42 Sickle Cells Not Reportable 10/03/20 09:42 Target Cells Not Reportable 10/03/20 09:42 Tear Drop Cells Not Reportable 10/03/20 09:42 Ovalocytes Not Reportable 10/03/20 09:42 Helmet Cells Not Reportable 10/03/20 09:42 [place] Bodies Not Reportable 10/03/20 09:42 [place] Rings Not Reportable 10/03/20 09:42 [place] Cells Not Reportable 10/03/20 09:42 Bite Cells Not Reportable 10/03/20 09:42 Crenated Cell Not Reportable 10/03/20 09:42 Elliptocytes Not Reportable 10/03/20 09:42 Acanthocytes (Spur) Not Reportable 10/03/20 09:42 Rouleaux Not Reportable 10/03/20 09:42 Hemoglobin C Crystals Not Reportable 10/03/20 09:42 Schistocytes Not Reportable 10/03/20 09:42 Malaria parasites Not Reportable 10/03/20 09:42 Harish Bodies Not Reportable 10/03/20 09:42 Hem Pathologist Commnt No 10/03/20 09:42 Sodium 141 mmol/L (137-145) 10/03/20 09:42 Potassium 4.3 mmol/L (3.6-5.0) 10/03/20 09:42 Chloride 104.9 mmol/L (98-107) 10/03/20 09:42 Carbon Dioxide 25 mmol/L (22-30) 10/03/20 09:42 Anion Gap 15 mmol/L 10/03/20 09:42 BUN 11 mg/dL (9-20) 10/03/20 09:42 Creatinine 1.0 mg/dL (0.8-1.3) 10/03/20 09:42 Estimated GFR > 60 ml/min 10/03/20 09:42 BUN/Creatinine Ratio 11 % 10/03/20 09:42 Glucose 109 mg/dL (75-100) H 10/03/20 09:42 POC Glucose 93 mg/dL (70-105) 10/01/20 20:51 Hemoglobin A1c 4.5 % (4-6) 10/03/20 09:42 Calcium 9.2 mg/dL (8.4-10.2) 10/03/20 09:42 Total Bilirubin 1.00 mg/dL (0.1-1.2) 10/03/20 09:42 AST 22 units/L (5-40) 10/03/20 09:42 ALT 19 units/L (7-56) 10/03/20 09:42 Alkaline Phosphatase 47 units/L (35-129) 10/03/20 09:42 Total Protein 6.7 g/dL (6.3-8.2) 10/03/20 09:42 Albumin 4.3 g/dL (3.9-5) 10/03/20 09:42 Albumin/Globulin Ratio 1.8 % 10/03/20 09:42 Triglycerides 133 mg/dL (2-149) 10/03/20 09:42 Cholesterol 127 mg/dL (50-199) 10/03/20 09:42 LDL Cholesterol Direct 71 mg/dL (50-130) 10/03/20 09:42 HDL Cholesterol 49 mg/dL (40-59) 10/03/20 09:42 Cholesterol/HDL Ratio 2.59 % 10/03/20 09:42 TSH 1.710 mlU/mL (0.270-4.200) 10/03/20 09:42 Free T3 Index 3.0 pg/mL (2.3-4.2) 10/03/20 09:42 Valproic Acid 74.6 ug/mL (50-100) 10/10/20 14:12 Core Measure Documentation - Palliative Care Palliative Care/ Comfort Measures: Not Applicable - Core Measures Any of the following diagnoses?: none Exam - Constitutional Vitals: Temp Pulse Resp BP Pulse Ox 97.6 F 86 16 121/70 95 10/11/20 19:22 10/11/20 19:22 10/11/20 19:22 10/11/20 19:22 10/11/20 19:22 General appearance: Present: no acute distress, well-nourished - EENT Eyes: Present: PERRL, EOM intact ENT: hearing intact, clear oral mucosa - Neck Neck: Present: supple, normal ROM - Respiratory Respiratory effort: normal Plan Activity: advance as tolerated Weight Bearing Status: Weight Bear as Tolerated Care Plan Goals: Maintain good and stable mental health Plan of Treatment: The patient should be compliant with medications, not to use drugs, and not to drink alcohol. The patient understands that if suicidal ideas, homicidal ideas or any endangering feeling arise, the patient should seek assistance including, but not limited to crisis hotline, and emergency room. Assessment: Schizophrenia The patient was seen today, he is calm and cooperative and states "I though I was going to get my walking papers yesterday." It was ordered that the patient be discharged yesterday but the patient did not leave. [facility] could not secure safe place for the patient. Follow up with: PRIMARY CARE, [Primary Care Provider] - 7 Days Prescriptions: traZODone [Desyrel] 50 mg PO QHS #30 tablet Melatonin [Melatonin 5MG TAB] 5 mg PO QHS PRN #30 tablet PRN Reason: Sleep Valproic Acid [DepaKENE] 500 mg PO BID #120 capsule [place]-3 Fatty Acids/Fish Oil [Fish Oil] 2,000 mg PO BID #120 capsule QUEtiapine [SEROquel] 200 mg PO BID #60 tablet
[2020-10-12 09:54] VITALS: BP 114/72
[2020-10-12] MEDS: OMEGA-3 FATTY ACIDS/FISH OIL 1 GRAM CAP PO SCH (11:58)
[2020-10-12] MEDS: VALPROIC ACID 250 MG CAP PO SCH (11:58)
[2020-10-12] MEDS: QUEtiapine 100 MG TAB PO SCH (11:59)
== END 2020-10-12 16:00 | disposition home or self-care (01) | DRG 885 ==
LOC: 3A 14:01 → UNDOADMIN 14:01 → 5A 20:40
PROVIDERS: ADMIT Psychiatry & Neurology Psychiatry; ATTEND Psychiatry & Neurology Psychiatry
DX: F20.9 Schizophrenia, unspecified (principal)
CPT/HCPCS: 36415; 80053; 80061; 80164; 82962; 83036; 84443; 84481; 85007; 85025; G0378; J0515; J1630; J2060; J3486